=== PATIENT | male | born 1970 | race Caucasian/White ===

== ENCOUNTER 2018-01-20 10:25 | Emergency (ER) | payer MEDICARE, OTHER ==
[2018-01-20 10:46] VITALS: RESP 18; TEMP 98.4
[2018-01-20] MEDS ORDERED: KETOROLAC 60 MG/2 ML VIAL IM STA (11:12)
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
[2018-01-20 12:36] VITALS: BP 146/90; PULSE 90
== END 2018-01-20 12:33 | disposition home or self-care (01) ==
LOC: EC 10:25
DX: S83.92XA Sprain of unspecified site of left knee, initial encounter (principal); S46.912A Strain of unspecified muscle, fascia and tendon at shoulder and upper arm level, left arm, initial encounter; S16.1XXA Strain of muscle, fascia and tendon at neck level, initial encounter; G89.29 Other chronic pain; F31.9 Bipolar disorder, unspecified; F41.9 Anxiety disorder, unspecified; F17.200 Nicotine dependence, unspecified, uncomplicated; Z79.899 Other long term (current) drug therapy; Y09 Assault by unspecified means
CPT/HCPCS: 73030; 73562; 72125; 99284; 96372; J1885

== ENCOUNTER → 2018-01-27 | Outpatient (CLI) | payer MEDICARE, OTHER ==
--- NOTE | 2018-01-27 23:07 | MR ---
EXAMINATION TYPE: MR knee LT wo con DATE OF EXAM: 01/27/2018 COMPARISON: NONE HISTORY: Left knee pain with locking and swelling since 01/18/2018 TECHNIQUE: Multiplanar, multisequence imaging of the left knee is performed without IV contrast. FINDINGS: The anterior and posterior cruciate ligaments appear intact. There is knee joint effusion. There is s ubcutaneous edema around the knee and more on the posterior aspect. There is soft tissue fluid in the popliteal region. There is a horizontal defect within the posterior horn of the medial meniscus. Thi s extends slightly into the anterior horn of the medial meniscus. There is a similar larger defect in the posterior horn of the lateral meniscus. There is collateral ligaments are intact. There is no ev idence of a fracture. Joint spaces are fairly normal. IMPRESSION: No evidence of ligamentous tear. Knee joint effusion and subcutaneous edema around the knee. Poplitea l space edema. Intrasubstance horizontal tears of the medial meniscus and the posterior horn of the lateral meniscus .
== END | disposition home or self-care (01) ==
LOC: RADMRIMAIN 21:20
PROVIDERS: ATTEND Internal Medicine
DX: S83.242A Other tear of medial meniscus, current injury, left knee, initial encounter (principal); S83.282A Other tear of lateral meniscus, current injury, left knee, initial encounter

== ENCOUNTER → 2019-01-05 | Outpatient (CLI) | payer MEDICARE, OTHER ==
--- NOTE | 2019-01-06 00:30 | MR ---
EXAMINATION TYPE: MR knee LT wo con DATE OF EXAM: 01/05/2019 COMPARISON: January 27, 2018 HISTORY: Lt knee pain/injury January 2018 TECHNIQUE: Multiplanar, multisequence imaging of the left knee is performed without IV contrast. FINDINGS: The anterior and posterior cruciate ligaments are intact. There is mild increased signal within the l ateral meniscus that does not extend to the articular surface. There is minimal increased signal with in the posterior horn of the medial meniscus also. There is a small knee joint effusion. I see no bon y destructive process. There is a small degenerative cyst in the anterior aspect lateral femoral cond yle. There is no evidence of a fracture. The collateral ligaments appear intact. Patella appears inta ct. IMPRESSION: There is a small intrasubstance tear of the anterior and posterior horns of the lateral meniscus and also the posterior horn of the medial meniscus. There is no significant change in the appearance of t he menisci compared to last MR scan. Small knee joint effusion that appears smaller than the old exam. No evidence of ligamentous tear. 7 mm degenerative cyst in the lateral femoral condyle anteriorly. There is clearing of the bone bruise in the lateral femoral condyle in the same location compared to old exam.
== END ==
LOC: RADMRIMAIN 20:14
PROVIDERS: ATTEND Orthopaedic Surgery
DX: S83.282A Other tear of lateral meniscus, current injury, left knee, initial encounter (principal); S83.242A Other tear of medial meniscus, current injury, left knee, initial encounter; M85.68 Other cyst of bone, other site; S70.12XA Contusion of left thigh, initial encounter

== ENCOUNTER 2020-04-14 09:19 | Inpatient (IN) | payer OTHER, MEDICARE ==
--- NOTE | 2020-04-14 09:56 | ED ---
General Adult HPI - General Chief complaint: Recheck/Abnormal Lab/Rx Stated complaint: lab recheck-sent by Time Seen by Provider: 04/14/20 09:30 Source: patient, RN notes reviewed Mode of arrival: ambulatory Limitations: no limitations - History of Present Illness Initial comments: This is a 49-year-old male presents emergency Department chief complaint of elevated they did bilirubin. Patient states that his primary care physician advised him come emergency department for this. Patient states that recently in the last week his front of him and telling them that his eyes seemed to be yellow in color. Patient states that he notices urine is darker than normal. Patient was advised by his primary care physician this is most likely related to his alcohol use. Patient states that he drinks either a 12 pack a day or 612 years. Patient states that he is on it as long as he remembers. Patient states that he's been noticing that his abdomen has been distended, and his legs have been swelling. Patient denies any fevers chills no current chest pain. He's had some intermittent shortness of breath. - Related Data Home Medications Medication Instructions Recorded Confirmed Carboxymethylcellulose Sodium 1 drop BOTH EYES QID 01/20/18 01/20/18 [Refresh Tears] Diclofenac Sodium Gel [Voltaren 1 applic TOPICAL BID PRN 01/20/18 01/20/18 Gel] HYDROcodone/APAP 7.5-325MG [[place] 1 tab PO BID PRN 01/20/18 01/20/18 7.5-325] Lidocaine 5% Patch [Lidoderm] 1 - 3 patch TOPICAL DAILY PRN 01/20/18 01/20/18 Mirtazapine 15 mg PO HS 01/20/18 01/20/18 Sildenafil Citrate [Viagra] 50 mg PO ONCE PRN 01/20/18 01/20/18 buPROPion HCL [Wellbutrin SR] 200 mg PO BID 01/20/18 01/20/18 Previous Rx's Medication Instructions Recorded Ibuprofen [Motrin] 600 mg PO Q6HR PRN #20 tab 01/20/18 Orphenadrine [Norflex] 100 mg PO Q12H #10 tablet.er 01/20/18 Allergies Allergy/AdvReac Type Severity Reaction Status Date / Time No Known Allergies Allergy Verified 04/14/20 09:27 Review of Systems ROS Statement: Those systems with pertinent positive or pertinent negative responses have been documented in the HPI. ROS Other: All systems not noted in ROS Statement are negative. Past Medical History Additional Past Medical History / Comment(s): chronic pain, antisocial behavior, right eye problems (possibly CA), closed head injury x5 History of Any Multi-Drug Resistant Organisms: None Reported Past Surgical History: Orthopedic Surgery Additional Past Surgical History / Comment(s): hand Past Psychological History: Anxiety, Bipolar Smoking Status: Former smoker Past Alcohol Use History: Daily Past Drug Use History: Marijuana General Exam Limitations: no limitations General appearance: alert, in no apparent distress Head exam: Present: atraumatic, normocephalic, normal inspection Eye exam: Present: PERRL, EOMI, scleral icterus. Absent: normal appearance, conjunctival injection, periorbital swelling ENT exam: Present: mucous membranes moist. Absent: normal exam, normal oropharynx (Sublingual icterus) Neck exam: Present: normal inspection, full ROM. Absent: tenderness, meni ngismus, lymphadenopathy Respiratory exam: Present: normal lung sounds bilaterally. Absent: respiratory distress, wheezes, rales, rhonchi, stridor Cardiovascular Exam: Present: normal rhythm, tachycardia, normal heart sounds. Absent: systolic murmur, diastolic murmur, rubs, gallop, clicks GI/Abdominal exam: Present: soft, distended, tenderness (Mild), normal bowel sounds, other (There are 2 healing wounds noted, there is some surrounding ecchymosis noted). Absent: guarding, rebound, rigid Back exam: Absent: CVA tenderness (R), CVA tenderness (L) Neurological exam: Present: alert, oriented X3, CN II-XII intact Skin exam: Present: warm, dry, intact, normal color. Absent: rash Course Vital Signs 04/14/20 09:23 Temperature 99.2 F Pulse Rate 107 H Respiratory 18 Rate Blood Pressure 124/69 O2 Sat by Pulse 97 Oximetry Medical Decision Making - Medical Decision Making 49-year-old male presents emergency Department chief complaint abnormal labs. Patient's found To have a bilirubin of 12.3 with transaminitis, INR 1.9. Patient's albumin is 2.8. Patient has acute liver failure, cirrhosis from alcohol abuse. Patient will be admitted to the for GI and surgery consult. Patient was placed on CIWA with Ativan protocol. - Lab Data Result diagrams: 04/14/20 10:11 Lab Results 04/14/20 04/14/20 04/14/20 Range/Units 10:11 10:11 10:11 PT 18.1 H (9.0-12.0) sec INR 1.9 H (<1.2) APTT 35.9 H (22.0-30.0) sec Sodium 136 L (137-145) mmol/L Potassium 4.1 (3.5-5.1) mmol/L Chloride 99 (98-107) mmol/L Carbon Dioxide 28 (22-30) mmol/L Anion Gap 9 mmol/L BUN 8 L (9-20) mg/dL Creatinine 0.62 L (0.66-1.25) mg/dL Est GFR (CKD-EPI)AfAm >90 (>60 ml/min/1.73 sqM) Est GFR (CKD-EPI)NonAf >90 (>60 ml/min/1.73 sqM) Glucose 101 H (74-99) mg/dL Plasma Lactic Acid Gasper 1.6 (0.7-2.0) mmol/L Calcium 8.7 (8.4-10.2) mg/dL Total Bilirubin 12.3 H (0.2-1.3) mg/dL AST 192 H (17-59) U/L ALT 66 H (4-49) U/L Alkaline Phosphatase 167 H (38-126) U/L Ammonia 25 (<30) umol/L Total Protein 7.7 (6.3-8.2) g/dL Albumin 2.8 L (3.5-5.0) g/dL Amylase 57 (30-110) U/L Lipase 380 H (23-300) U/L Serum Alcohol <10 mg/dL Disposition Clinical Impression: Alcohol abuse, Acute liver failure, Liver cirrhosis, Jaundice Disposition: ADMITTED IP TO THIS HOSP Condition: Serious Referrals: Hilaria Rhodes DO [Primary Care Provider] - 1-2 days
--- NOTE | 2020-04-14 10:49 | US ---
EXAMINATION TYPE: US liver DATE OF EXAM: 04/14/2020 COMPARISON: None CLINICAL HISTORY: 49-year-old male with Jaundice. Elevated bilirubin. TECHNIQUE: Multiple sonographic images of the right upper quadrant are obtained. FINDINGS: EXAM MEASUREMENTS: Liver Length: 23.9 cm Gallbladder Wall: 0.6 cm Right Kidney: 12.6 x 6.6 x 5.6 cm Pancreas: Obscured by bowel gas Liver: Increased attenuation, decreased visualization of vessels suggestive of fatty infiltrate. Un able to visualize posterior liver. Liver appears enlarged, echogenic and nodular. This secondarily limits assessment for focal lesion. At the gallbladder fundus, there is either Gallbladder: Thickened wall. At the gallbladder fundus, there is either more focal wall thickening m easuring 1.9 x 0.7 cm versus tumefactive sludge. No associated vascularity. No shadowing calculi. Evidence for sonographic Mao's sign: neg CBD: Obscured by overlying bowel gas Right Kidney: No hydronephrosis or masses seen Ascites visualized adjacent to liver and small amount of fluid seen in LLQ IMPRESSION: 1. Hepatomegaly (23.9 cm) with severe hepatic steatosis. There is also some contour irregularity of t he liver raising the possibility of cirrhosis. 2. The changes in the liver limit assessment for focal lesions. 3. Bile duct is obscured by bowel gas and not assessed. 4. Gallbladder wall thickening is nonspecific and may be seen in the setting of cirrhosis or fluid ov erload states. Chronic cholecystitis is a consideration as well. 5. More focal 1.9 x 0.7 cm thickening of the fundus of the gallbladder versus tumefactive sludge. 2 m onth follow-up ultrasound recommended to reassess this area. 6. Mild right upper quadrant and left lower quadrant ascites.
[2020-04-14 11:08] LABS: INR 1.9 (<1.2); Lactic Acid, Venous 1.6 mmol/L (0.7-2.0); Partial Thromboplastin Time 35.9 sec (22.0-30.0); Prothrombin Time 18.1 sec (9.0-12.0)
[2020-04-14 11:13] LABS: ALT 66 U/L (4-49); AST 192 U/L (17-59); African American GFR (CKD) >90 (>60 ml/min/1.73 sqM); Albumin 2.8 g/dL (3.5-5.0); Alcohol <10 mg/dL; Alkaline Phosphatase 167 U/L (38-126); Amylase 57 U/L (30-110); Anion Gap 9 mmol/L; Blood Urea Nitrogen 8 mg/dL (9-20); Calcium 8.7 mg/dL (8.4-10.2); Carbon Dioxide 28 mmol/L (22-30); Chloride 99 mmol/L (98-107); Glucose 101 mg/dL (74-99); Non-African American GFR(CKD) >90 (>60 ml/min/1.73 sqM); Potassium 4.1 mmol/L (3.5-5.1); Sodium 136 mmol/L (137-145); Total Bilirubin 12.3 mg/dL (0.2-1.3); Total Protein 7.7 g/dL (6.3-8.2)
[2020-04-14] MEDS ORDERED: ONDANSETRON 4 MG/2 ML VIAL IVP PRN (11:30)
[2020-04-14] MEDS ORDERED: NALOXONE 0.4 MG/ML 1 ML VIAL IV PRN (11:30)
[2020-04-14] MEDS ORDERED: LORazepam 2 MG/ML INJ IV PRN ×3 (11:31)
[2020-04-14] MEDS ORDERED: MORPHINE SULFATE 4 MG/ML SYRINGE IVP STA (11:34)
[2020-04-14 12:05] LABS: Basophils # (A) 0.1 k/uL (0-0.2); Basophils % (A) 1 %; Eosinophils # (A) 0.1 k/uL (0-0.7); Eosinophils % (A) 1 %; HCT 36.7 % (39.0-53.0); Lymphocytes # (A) 0.8 k/uL (1.0-4.8); Lymphocytes % (A) 10 %; MCH 37.4 pg (25.0-35.0); MCHC 32.7 g/dL (31.0-37.0); MCV 114.2 fL (80.0-100.0); Macrocytosis Marked; Mean Platelet Volume 9.8; Monocytes # (A) 0.6 k/uL (0-1.0); Monocytes % (A) 7 %; Neutrophils # (A) 6.1 k/uL (1.3-7.7); Neutrophils % (A) 80 %; RBC 3.21 m/uL (4.30-5.90); RDW 13.6 % (11.5-15.5); WBC 7.7 k/uL (3.8-10.6)
[2020-04-14 12:10] LABS: Anisocytosis (M) Present; Platelet Count 95 k/uL (150-450); Poikilocytosis (M) Present
[2020-04-14 12:15] LABS: Appearance,Urine Cloudy (Clear); Bilirubin,Urine 2+ (Negative); Blood,Urine Negative (Negative); Color,Urine Dark Brown; Glucose,Urine (UA) Negative (Negative); Ketones,Urine Negative (Negative); Leukocyte Esterase,Urine Negative (Negative); Mucus,Urine Many /hpf; Nitrite,Urine Negative (Negative); Protein,Urine 1+ (Negative); RBC,Urine 1 /hpf (0-5); Specific Gravity,Urine 1.025 (1.001-1.035); WBC,Urine 1 /hpf (0-5)
[2020-04-14] MEDS: SPIRONOLACTONE 25 MG TAB PO SCH (18:27)
[2020-04-14] MEDS: FUROSEMIDE 40 MG TAB PO SCH (18:27)
[2020-04-14] MEDS: THIAMINE 100 MG TAB PO SCH (18:27)
[2020-04-14] MEDS: oxyCODONE-APAP 10-325MG 1 EACH TAB PO PRN (19:38)
[2020-04-14] MEDS: PANTOPRAZOLE 40 MG TABLET PO SCH (19:38)
--- NOTE | 2020-04-15 00:10 | CONS ---
CONSULTATION DATE OF DICTATION: 04/14/2020 REASON FOR CONSULTATION: Jaundice and elevated LFTs. HISTORY OF PRESENT ILLNESS: The patient is a 49-year-old pleasant white male admitted to the hospital because of abnormal labs and elevated LFTs. The patient was seen by his primary care physician because of a recent dog bite and he was receiving some antibiotics. He was seen there yesterday because of lower extremity swelling and some abdominal distention and was told that he has yellowish discoloration of his eyes and advised to go to the emergency room. Patient has history of heavy alcohol abuse for the last 20 years duration. He usually drinks 12 pack of beer on a daily basis for the last 20 years. He denies any abdominal pain. He reports no nausea or vomiting. He denies any rectal bleeding or melena. He came in the emergency room and was noted to have elevated bilirubin at 16 g/dL with ALT and AST at 192 and 66 respectively. Alkaline phosphatase was 167. Amylase and lipase are normal. He recently had a dog bite and took antibiotics for 10 days. Last dose of antibiotic was yesterday morning. PAST MEDICAL HISTORY: Significant for hypertension, chronic back pain, anxiety, depression, recent dog bite and heavy alcohol abuse. MEDICATIONS: Medications at home include Voltaren gel, Viagra, Wellbutrin, Lidoderm, [place], mirtazapine. ALLERGIES: None. SOCIAL HISTORY: Former smoker. Heavy alcohol use as mentioned above. PAST SURGICAL HISTORY: Some orthopedic surgery. REVIEW OF SYSTEMS: CARDIOPULMONARY: No chest pain, shortness of breath. GENITOURINARY: No dysuria or hematuria. MUSCULOSKELETAL: Unremarkable. SKIN: Unremarkable. ENDOCRINE: Unremarkable. PSYCHIATRIC: Unremarkable. NEUROLOGY: Unremarkable. ENT/VISION: Unremarkable. CONSTITUTIONAL: No recent weight loss. No fever, chills, night sweats. PHYSICAL EXAMINATION: He appears comfortable. No apparent distress. Vital signs are stable. Blood pressure 128/76, pulse rate 97, temperature 98. HEENT EXAMINATION: Unremarkable. Conjunctivae pink. Sclerae anicteric. Oral cavity, no lesions. NECK: No JVD or lymph node enlargement. CHEST: Clear to auscultation. HEART: Regular rate and rhythm. ABDOMEN: Soft, it was slightly distended. There was some amount of free fluid noted in the abdomen. EXTREMITIES: 1+ pedal edema. SKIN: No rashes. NEURO: He is alert and oriented x3. No focal deficits. Ultrasound of the right upper quadrant did show evidence of small amount of ascites. There is increased attenuation of the liver consistent with fatty infiltration of the liver. Gallbladder wall was thickened. There was mild thickening of the gallbladder wall. No evidence of gallstones. IMPRESSION: 1. This is a patient with history of heavy alcohol abuse for the last 20 years duration, presents to the hospital with jaundice, abdominal distention and lower extremity swelling for the last few days duration. His picture is consistent with acute alcoholic liver disease with alcoholic hepatitis superimposed on possible underlying chronic alcoholic liver disease. 2. Mild ascites. 3. Recent dog bite, status post 10 days of antibiotics. 4. Macrocytic anemia. 5. Coagulopathy secondary to underlying chronic liver disease. RECOMMENDATIONS: 1. Abstinence from alcohol. 2. Monitor LFTs closely. 3. Obtain hepatitis viral serologies for A, B and C. 4. We will start him on diuretics with Lasix 40 mg daily and Aldactone 50 mg daily. 5. Low-salt diet. 6. We will follow with you closely. Thank you for this consultation. MMODL / IJN: [id number] /
[2020-04-15] MEDS: oxyCODONE-APAP 10-325MG 1 EACH TAB PO PRN ×3 (05:57→22:09)
[2020-04-15 08:20] LABS: ALT 63 U/L (4-49); AST 156 U/L (17-59); African American GFR (CKD) >90 (>60 ml/min/1.73 sqM); Albumin 2.5 g/dL (3.5-5.0); Alkaline Phosphatase 145 U/L (38-126); Anion Gap 6 mmol/L; Blood Urea Nitrogen 14 mg/dL (9-20); Calcium 8.6 mg/dL (8.4-10.2); Carbon Dioxide 26 mmol/L (22-30); Chloride 99 mmol/L (98-107); Glucose 103 mg/dL (74-99); Non-African American GFR(CKD) >90 (>60 ml/min/1.73 sqM); Potassium 3.9 mmol/L (3.5-5.1); Sodium 131 mmol/L (137-145); Total Bilirubin 12.2 mg/dL (0.2-1.3); Total Protein 7.3 g/dL (6.3-8.2)
[2020-04-15] MEDS: SPIRONOLACTONE 25 MG TAB PO SCH (09:04)
[2020-04-15] MEDS: PANTOPRAZOLE 40 MG TABLET PO SCH ×2 (09:04→18:36)
[2020-04-15] MEDS: FUROSEMIDE 40 MG TAB PO SCH (09:04)
[2020-04-15] MEDS: THIAMINE 100 MG TAB PO SCH ×2 (09:05→18:36)
--- NOTE | 2020-04-15 14:09 | P.GSCN ---
History of Present Illness Consult date: 04/15/20 Reason for Consult: Chronic cholecystitis Requesting physician: Miah Dawn History of present illness: CHIEF COMPLAINT: Chronic cholecystitis HISTORY OF PRESENT ILLNESS: 49-year-old male who presented to the emergency room after having labs completed outpatient secondary to jaundice and was notified by his physician that his labs were abnormal. Patient has a history of alcohol abuse. Patient examined at the bedside with Dr. Cotto. Patient states he has a chronic pain patient. However he denies any worsening pain to his abdomen. Denies nausea or vomiting. He is tolerating diet. PAST MEDICAL HISTORY: See list. PAST SURGICAL HISTORY: See list. SOCIAL HISTORY: History of alcohol abuse REVIEW OF SYSTEMS: CONSTITUTIONAL: Denies fever or chills. HEENT: Denies blurred vision, vision changes, or eye pain. Denies hemoptysis CARDIOVASCULAR: Denies chest pain or pressure. RESPIRATORY: No shortness of breath. GASTROINTESTINAL: Refer to HPI for pertinent findings HEMATOLOGIC: Denies bleeding disorders. GENITOURINARY: Denies any blood in urine. SKIN: Denies pruitis. Denies rash. PHYSICAL EXAM: VITAL SIGNS: Reviewed. Jaundice GENERAL: Well-developed in no acute distress. HEENT: Bilateral sclera icterus. Extraocular movements grossly intact. Moist buccal mucosa. Head is atraumatic, normocephalic. ABDOMEN: Obese. Distended but appears to be patient's baseline. Nontender. NEUROLOGIC: Alert and oriented. Cranial nerves II through XII grossly intact. LABORATORY DATA: WBC 7.7. Hemoglobin 12.0. Platelet count 95. INR 1.9. Bilirubin 12.2. AST 156. ALT 63. Alkaline phosphatase 145. IMAGING: Abdominal ultrasound: Hepatomegaly with severe hepatic steatosis. Bile duct is obscured by bowel gas and not assessed. Gallbladder wall thickening is nonspec ific and may be seen in the setting of cirrhosis or fluid overload. Chronic cholecystitis is a consideration as well. Mild right upper quadrant and left lower quadrant ascites. ASSESSMENT: 1. Jaundice 2. Hyperbilirubinemia 3. Transaminitis 4. History of alcohol abuse 5. Possible chronic cholecystitis PLAN: -Diet as tolerated -No surgical intervention recommended -Patient may follow up with Dr. Cotto outpatient postdischarge Nurse practitioner note has been reviewed by physician. Signing provider agrees with the documented findings, assessment, and plan of care. 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, [place] 2015 per patient History of Any Multi-Drug Resistant Organisms: MRSA Year Discovered:: 2012 MDRO Source:: wound Past Surgical History: Orthopedic Surgery Additional Past Surgical History / Comment(s): hand Past Anesthesia/Blood Transfusion Reactions: No Reported Reaction Past Psychological History: Anxiety, Bipolar Smoking Status: Never smoker Past Alcohol Use History: Daily Past Drug Use History: Marijuana - Past Family History Mother Family Medical History: COPD Father History Unknown: Yes Medications and Allergies Home Medications Medication Instructions Recorded Confirmed Type Albuterol Sulfate [Ventolin HFA] 2 puff INHALATION RT-Q4H PRN 04/14/20 04/14/20 History Amoxic-Pot Clav 875-125Mg 1 tab PO BID 04/14/20 04/14/20 History [Augmentin 875-125] Omeprazole [PriLOSEC] 20 mg PO DAILY 04/14/20 04/14/20 History oxyCODONE-APAP 10-325MG [Percocet 1 tab PO TID PRN 04/14/20 04/14/20 History 10-325 mg] Allergies Allergy/AdvReac Type Severity Reaction Status Date / Time No Known Allergies Allergy Verified 04/14/20 18:19 Surgical - Exam Vital Signs Temp Pulse Resp BP Pulse Ox 99.2 F 107 H 18 124/69 97 04/14/20 09:23 04/14/20 09:23 04/14/20 09:23 04/14/20 09:23 04/14/20 09:23 Results - Labs 04/14/20 10:11 04/15/20 07:46 Abnormal Lab Results - Last 24 Hours (Table) 04/15/20 Range/Units 07:46 Sodium 131 L (137-145) mmol/L Creatinine 0.64 L (0.66-1.25) mg/dL Glucose 103 H (74-99) mg/dL Total Bilirubin 12.2 H (0.2-1.3) mg/dL AST 156 H (17-59) U/L ALT 63 H (4-49) U/L Alkaline Phosphatase 145 H (38-126) U/L Albumin 2.5 L (3.5-5.0) g/dL Diabetes panel 04/15/20 Range/Units 07:46 Sodium 131 L (137-145) mmol/L Potassium 3.9 (3.5-5.1) mmol/L Chloride 99 (98-107) mmol/L Carbon Dioxide 26 (22-30) mmol/L BUN 14 (9-20) mg/dL Creatinine 0.64 L (0.66-1.25) mg/dL Glucose 103 H (74-99) mg/dL Calcium 8.6 (8.4-10.2) mg/dL AST 156 H (17-59) U/L ALT 63 H (4-49) U/L Alkaline Phosphatase 145 H (38-126) U/L Total Protein 7.3 (6.3-8.2) g/dL Albumin 2.5 L (3.5-5.0) g/dL Calcium panel 04/15/20 Range/Units 07:46 Calcium 8.6 (8.4-10.2) mg/dL Albumin 2.5 L (3.5-5.0) g/dL Pituitary panel 04/15/20 Range/Units 07:46 Sodium 131 L (137-145) mmol/L Potassium 3.9 (3.5-5.1) mmol/L Chloride 99 (98-107) mmol/L Carbon Dioxide 26 (22-30) mmol/L BUN 14 (9-20) mg/dL Creatinine 0.64 L (0.66-1.25) mg/dL Glucose 103 H (74-99) mg/dL Calcium 8.6 (8.4-10.2) mg/dL Adrenal panel 04/15/20 Range/Units 07:46 Sodium 131 L (137-145) mmol/L Potassium 3.9 (3.5-5.1) mmol/L Chloride 99 (98-107) mmol/L Carbon Dioxide 26 (22-30) mmol/L BUN 14 (9-20) mg/dL Creatinine 0.64 L (0.66-1.25) mg/dL Glucose 103 H (74-99) mg/dL Calcium 8.6 (8.4-10.2) mg/dL Total Bilirubin 12.2 H (0.2-1.3) mg/dL AST 156 H (17-59) U/L ALT 63 H (4-49) U/L Alkaline Phosphatase 145 H (38-126) U/L Total Protein 7.3 (6.3-8.2) g/dL Albumin 2.5 L (3.5-5.0) g/dL
[2020-04-15 16:30] LABS: Hepatitis A Antibody IgM Non-Reactive (Non-Reactive); Hepatitis B Core IgM Non-Reactive (Non-Reactive); Hepatitis B Surface Antigen Non-Reactive (Non-Reactive); Hepatitis C IgG Antibody Non-Reactive (Non-Reactive)
--- NOTE | 2020-04-15 23:46 | P.HPIM ---
History of Present Illness H&P Date: 04/15/20 Chief Complaint: jaundice Jitendra Shook is a 49 yo M with hx chronic back pain, alcohol abuse who presented to the ED after he was noted to have significant jaundice by his p hysician. He was seen in clinic yesterday and recommended to come in to the ED. He states he drinks a 12 pack of beer most days for years, but with the lockdown he has not been able to work so has spent most of his time drinking beer. He denies any abdominal pain, nausea or vomiting. In the ED WBC 7.7, Hgb 12, bilirubin was 12.3, AST/ALT 192 and 68. Abd US showed fatty liver, gallbladder wall thickening with possible chronic cholecystitis. Review of Systems All systems: negative Constitutional: Reports malaise, Denies chills, Denies fever Eyes: denies blurred vision, denies pain Ears, nose, mouth and throat: Denies headache, Denies sore throat Cardiovascular: Denies chest pain, Denies shortness of breath Respiratory: Denies cough Gastrointestinal: Reports jaundice, Reports loss of appetite, Denies abdominal pain, Denies diarrhea, Denies nausea, Denies vomiting Musculoskeletal: Denies myalgias Integumentary: Denies pruritus, Denies rash Neurological: Denies numbness, Denies weakness Psychiatric: Denies anxiety, Denies depression Endocrine: Denies fatigue, Denies weight change 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, [place] 2015 per patient History of Any Multi-Drug Resistant Organisms: MRSA Date of last positivie culture/infection: 2012 MDRO Source:: wound Past Surgical History: Orthopedic Surgery Additional Past Surgical History / Comment(s): hand Past Anesthesia/Blood Transfusion Reactions: No Reported Reaction Past Psychological History: Anxiety, Bipolar Smoking Status: Never smoker Past Alcohol Use History: Daily Past Drug Use History: Marijuana - Past Family History Mother Family Medical History: COPD Father History Unknown: Yes Medications and Allergies Home Medications Medication Instructions Recorded Confirmed Type Albuterol Sulfate [Ventolin HFA] 2 puff INHALATION RT-Q4H PRN 04/14/20 04/14/20 History Amoxic-Pot Clav 875-125Mg 1 tab PO BID 04/14/20 04/14/20 History [Augmentin 875-125] Omeprazole [PriLOSEC] 20 mg PO DAILY 04/14/20 04/14/20 History oxyCODONE-APAP 10-325MG [Percocet 1 tab PO TID PRN 04/14/20 04/14/20 History 10-325 mg] Allergies Allergy/AdvReac Type Severity Reaction Status Date / Time No Known Allergies Allergy Verified 04/14/20 18:19 Physical Exam Vitals: Vital Signs Temp Pulse Resp BP Pulse Ox 04/15/20 20:50 98.8 F 97 18 120/71 95 04/15/20 12:05 98.5 F 70 17 95/63 95 04/15/20 04:49 98.5 F 96 18 112/62 96 Intake and Output 04/15/20 04/15/20 04/16/20 14:59 22:59 06:59 Intake Total 500 Balance 500 Intake: Oral 500 Other: Voiding Method Toilet Toilet # Voids 2 General: well developed white male in NAD. Vitals reviewed Eyes: PERRL, EOMI, scleral icterus HENT: normocephalic, mucus membranes moist Neck: supple, no JVD Lungs: normal respiratory effort, no wheezes or rales CV: Regular rate and rhythm, no murmur. Peripheral pulses 2+ Abdomen: soft, distended, nontender, no organomegaly Lymph: no cervical or axillary LAD Skin: warm and dry. Jaundice Neuro: A&Ox3, normal mood and affect Results CBC & Chem 7: 04/14/20 10:11 04/15/20 07:46 Labs: Abnormal Lab Results - Last 24 Hours (Table) 04/15/20 Range/Units 07:46 Sodium 131 L (137-145) mmol/L Creatinine 0.64 L (0.66-1.25) mg/dL Glucose 103 H (74-99) mg/dL Total Bilirubin 12.2 H (0.2-1.3) mg/dL AST 156 H (17-59) U/L ALT 63 H (4-49) U/L Alkaline Phosphatase 145 H (38-126) U/L Albumin 2.5 L (3.5-5.0) g/dL Thrombosis Risk Factor Assmnt - Choose All That Apply Each Factor Represents 1 point: Age 41-60 years Other Risk Factors: No Other congenital or acquired thrombophilia - If yes, enter type in comment: No Thrombosis Risk Factor Assessment Total Risk Factor Score: 1 Thrombosis Risk Factor Assessment Level: Low Risk Assessment and Plan (1) Alcohol withdrawal Current Visit: Yes Status: Acute Code(s): F10.239 - ALCOHOL DEPENDENCE WITH WITHDRAWAL, UNSPECIFIED SNOMED Code(s): 803801156 (2) Elevated LFTs Current Visit: Yes Status: Acute Code(s): R79.89 - OTHER SPECIFIED ABNORMAL FINDINGS OF BLOOD CHEMISTRY SNOMED Code(s): 894210681 (3) Acute liver failure Current Visit: Yes Status: Acute Code(s): K72.00 - ACUTE AND SUBACUTE HEPATIC FAILURE WITHOUT COMA SNOMED Code(s): 602735299 (4) Alcohol abuse Current Visit: Yes Status: Acute Code(s): F10.10 - ALCOHOL ABUSE, UNCOMPLICATED SNOMED Code(s): 92466573 (5) Jaundice Current Visit: Yes Status: Acute Code(s): R17 - UNSPECIFIED JAUNDICE SNOMED Code(s): 05628042 (6) Liver cirrhosis Current Visit: Yes Status: Acute Code(s): K74.60 - UNSPECIFIED CIRRHOSIS OF LIVER SNOMED Code(s): 18587074 Plan: 1. Hyperbilirubinemia. Elevated LFTs. Suspect secondary to alcoholic cirrhosis. GI and general surgery consult. Abstain from alcohol. IV fluids and protonix. continue lasix 2. Alcohol withdrawal. CIWA protocol, replace thiamine 3. Macrocytic anemia
[2020-04-16 06:52] LABS: INR 1.8 (<1.2); Prothrombin Time 17.9 sec (9.0-12.0)
[2020-04-16 07:30] LABS: ALT 58 U/L (4-49); AST 146 U/L (17-59); African American GFR (CKD) >90 (>60 ml/min/1.73 sqM); Albumin 2.4 g/dL (3.5-5.0); Alkaline Phosphatase 136 U/L (38-126); Anion Gap 7 mmol/L; Blood Urea Nitrogen 13 mg/dL (9-20); Calcium 8.3 mg/dL (8.4-10.2); Carbon Dioxide 27 mmol/L (22-30); Chloride 99 mmol/L (98-107); Glucose 97 mg/dL (74-99); Non-African American GFR(CKD) >90 (>60 ml/min/1.73 sqM); Sodium 133 mmol/L (137-145); Total Bilirubin 9.8 mg/dL (0.2-1.3)
[2020-04-16] MEDS: THIAMINE 100 MG TAB PO SCH (08:33)
[2020-04-16] MEDS: FUROSEMIDE 40 MG TAB PO SCH (08:33)
[2020-04-16] MEDS: SPIRONOLACTONE 25 MG TAB PO SCH (08:33)
[2020-04-16] MEDS: oxyCODONE-APAP 10-325MG 1 EACH TAB PO PRN (08:34)
[2020-04-16] MEDS: PANTOPRAZOLE 40 MG TABLET PO SCH (08:36)
--- NOTE | 2020-04-16 09:32 | P.PN ---
Subjective Progress Note Date: 04/15/20 Principal diagnosis: Alcoholic liver disease, ascites, macrocytic anemia Patient seen lying in bed tolerating diet. No abdominal pain. No nausea or vomiting but he does report abdominal distention. Objective - Vital Signs Vital signs: Vital Signs Temp 98.5 F 04/15/20 12:05 Pulse 70 04/15/20 12:05 Resp 17 04/15/20 12:05 BP 95/63 04/15/20 12:05 Pulse Ox 95 04/15/20 12:05 Intake & Output 04/14/20 04/15/20 04/15/20 18:59 06:59 18:59 Weight 113.398 kg 112 kg Other: Voiding Method Toilet Toilet # Voids 1 - Exam On physical examination, patient appears comfortable in no apparent distress. HEAD: Normocephalic, atraumatic. EYES: Scleral icterus. No conjunctival injection. MOUTH: No lesions, tongue midline. NECK: Trachea midline, no gross abnormalities. ABDOMEN: Soft, moderately distended. Bowel sounds are positive. No organomegaly. No guarding or rigidity. EXTREMITIES: No pedal edema. SKIN: No rashes, jaundice. NEUROLOGIC: Alert and oriented x3. No focal deficits. - Labs CBC & Chem 7: 04/14/20 10:11 04/16/20 06:25 Labs: Abnormal Lab Results - Last 24 Hours (Table) 04/15/20 Range/Units 07:46 Sodium 131 L (137-145) mmol/L Creatinine 0.64 L (0.66-1.25) mg/dL Glucose 103 H (74-99) mg/dL Total Bilirubin 12.2 H (0.2-1.3) mg/dL AST 156 H (17-59) U/L ALT 63 H (4-49) U/L Alkaline Phosphatase 145 H (38-126) U/L Albumin 2.5 L (3.5-5.0) g/dL Assessment and Plan (1) Elevated LFTs Narrative/Plan: 49-year-old male with a 20 year history of alcohol abuse presenting to the hospital with jaundice, abdominal distention and lower extremity swelling. Liver enzymes consistent with underlying alcoholic liver disease with superimposed acute fall hepatitis. Current Visit: Yes Status: Acute Code(s): R79.89 - OTHER SPECIFIED ABNORMAL FINDINGS OF BLOOD CHEMISTRY SNOMED Code(s): 636085682 (2) Alcohol abuse Current Visit: Yes Status: Acute Code(s): F10.10 - ALCOHOL ABUSE, UNCOMPLICATED SNOMED Code(s): 22963193 (3) Jaundice Current Visit: Yes Status: Acute Code(s): R17 - UNSPECIFIED JAUNDICE SNOMED Code(s): 57952108 Plan: Supportive care Okay for sodium restricted diet Continue to monitor CBC, BMP, LFTs, INR Acute viral hepatitis panel testing negative Continue Lasix and Aldactone for diuresis Alcohol abstinence Monitor for signs or symptoms of alcohol withdrawal Thank you for allowing us to participate in the care of the patient we will continue to follow
--- NOTE | 2020-04-16 11:47 | P.PN ---
Subjective Progress Note Date: 04/16/20 Principal diagnosis: Jaundice Patient doing well today. Tolerating diet. No pain. Would like to go home today. Liver enzymes remain elevated. Objective - Vital Signs Vital signs: Vital Signs Temp 98.6 F 04/16/20 05:00 Pulse 100 04/16/20 05:00 Resp 20 04/16/20 05:00 BP 121/76 04/16/20 05:00 Pulse Ox 97 04/16/20 05:00 Intake & Output 04/15/20 04/16/20 04/16/20 18:59 06:59 18:59 Intake Total 500 240 Balance 500 240 Weight 111.5 kg Intake: Oral 500 240 Other: Voiding Method Toilet Toilet # Voids 2 - Exam Abdomen: Soft, nontender, nondistended - Labs CBC & Chem 7: 04/14/20 10:11 04/16/20 06:25 Labs: Abnormal Lab Results - Last 24 Hours (Table) 04/16/20 04/16/20 Range/Units 06:25 06:25 PT 17.9 H (9.0-12.0) sec INR 1.8 H (<1.2) Sodium 133 L (137-145) mmol/L Calcium 8.3 L (8.4-10.2) mg/dL Total Bilirubin 9.8 H (0.2-1.3) mg/dL AST 146 H (17-59) U/L ALT 58 H (4-49) U/L Alkaline Phosphatase 136 H (38-126) U/L Albumin 2.4 L (3.5-5.0) g/dL Assessment and Plan Plan: Continue diet as tolerated. GI following for alcohol-induced hepatitis.
[2020-04-16] MEDS ORDERED: LORazepam 1 MG TAB PO PRN (12:08)
[2020-04-16] MEDS ORDERED: AMPICILLIN-SULBACTAM 3 GM in SODIUM CHLORIDE 0.9% 100 ML IVPB SCH (12:15)
[2020-04-16 12:26] VITALS: BP 121/75; PULSE 92; RESP 16; TEMP 98
--- NOTE | 2020-04-16 18:40 | PN ---
PROGRESS NOTE DATE OF SERVICE: 04/16/2020 I am covering for Dr. Hilaria Rhodes and Dr. Cesar Ferrara. HISTORY OF PRESENT ILLNESS: This 43-year-old gentleman who was admitted with abdominal pain and also had significant ascites. The patient also has history of EtOH. The patient also had a skin lesion in the anterior part of the abdomen which was caused by a bite by a bulldog according to the patient. The patient was prescribed outpatient antibiotic, but not taken on a regular basis. Past medical history reviewed. REVIEW OF SYSTEMS: CARDIOVASCULAR SYSTEM: No angina or palpitations. RESPIRATION as mentioned earlier. GI: As mentioned earlier. no dysuria. Nervous system: No numbness or weakness. CURRENT MEDICATIONS: Reviewed and include: 1. Unasyn 3 g IV q.6 hours. 2. Lasix 40 mg daily. 3. Ativan. 4. Narcan. 5. Percocet. 6. Protonix. 7. Aldactone. 8. Vitamin B1. PHYSICAL EXAMINATION: Alert and oriented times three. Pulse 92, blood pressure 120/69. Temperature 98 degrees, pulse ox 98% on room air. HEENT: Conjunctivae normal. NECK: No JVD. CARDIOVASCULAR: S1, S2. RESPIRATORY: Breath sounds diminished in the bases. No rhonchi. No crackles. ABDOMEN: Soft, ascites, some discoloration, tenderness at the bite site also present. LAB STUDIES: WBC 7.5, hemoglobin is 12, sodium 131 other labs are noted. ASSESSMENT: 1. Diffuse ascites with tenderness and possible abdominal wall cellulitis resulting from dog bite by pit bull. 2. Chronic pain syndrome. 3. Degenerative joint disease. 4. History of MRSA. 5. Anxiety, bipolar. 6. Hyponatremia. 7. Elevated bilirubin, possibly secondary to cirrhosis of the liver. 8. Diffuse ascites. RECOMMENDATIONS AND DISCUSSION: This 49-year-old gentleman who presented with multiple complex medical issues, I would recommend to continue current medications, symptomatic treatment. Continue with IV antibiotics and I would also recommend further evaluation with CT scan and closely follow with surgery as well. The prognosis guarded because of multiple complex medical issues. Further recommendations to follow. MMODL / IJN: [id number] /
--- NOTE | 2020-04-16 22:27 | DS ---
DISCHARGE SUMMARY DATE OF SERVICE: 04/16/2020. FINAL DIAGNOSES: 1. Diffuse ascites secondary to cirrhosis liver. 2. Abdominal wall cellulitis resulting from pit bull bite. 3. History of chronic pain syndrome. 4. History of degenerative joint disease. 5. History of ETOH. 6. 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 7. Anxiety, bipolar. 8. Macrocytic anemia. 9. Coagulopathy. 10.Hyperbilirubinemia secondary to possibly alcoholic hepatitis, cirrhosis of liver. DISCHARGE DISPOSITION: The patient left the hospital AGAINST MEDICAL ADVICE. HISTORY OF PRESENT ILLNESS: This 49-year-old gentleman was admitted with multiple medical issues. Patient being followed Dr. Hilaria Rhodes and Dr. Cesar Ferrara in the hospital. However, the patient is not willing to stay. The patient was prescribed antibiotics and suggested further testing, but however the patient left the hospital AGAINST MEDICAL ADVICE after a detailed explanation as well. Overall prognosis extremely guarded because of multiple complex medical issues as listed above. Please refer to the multiple progress notes and staff notes for further details. MMODL / IJN: [id number] /
== END 2020-04-16 13:02 | disposition left against medical advice (07) | DRG 433 ==
LOC: EC 09:19 → 5NMEDONC 11:27
PROVIDERS: ADMIT Family Medicine; ATTEND Family Medicine
DX: K70.31 Alcoholic cirrhosis of liver with ascites (principal); L03.311 Cellulitis of abdominal wall; D68.4 Acquired coagulation factor deficiency; F10.239 Alcohol dependence with withdrawal, unspecified; E87.1 Hypo-osmolality and hyponatremia; K81.1 Chronic cholecystitis; K70.11 Alcoholic hepatitis with ascites; K70.40 Alcoholic hepatic failure without coma; F31.9 Bipolar disorder, unspecified; Z20.828 Contact with and (suspected) exposure to other viral communicable diseases; K76.0 Fatty (change of) liver, not elsewhere classified; D53.9 Nutritional anemia, unspecified; I10 Essential (primary) hypertension; M19.90 Unspecified osteoarthritis, unspecified site; M48.02 Spinal stenosis, cervical region; G89.4 Chronic pain syndrome; M54.9 Dorsalgia, unspecified; F41.9 Anxiety disorder, unspecified; Z72.811 Adult antisocial behavior; Z79.899 Other long term (current) drug therapy; Z87.891 Personal history of nicotine dependence; Z86.14 Personal history of Methicillin resistant Staphylococcus aureus infection; Z87.820 Personal history of traumatic brain injury; Z98.890 Other specified postprocedural states; W54.0XXA Bitten by dog, initial encounter; Z82.5 Family history of asthma and other chronic lower respiratory diseases
CPT/HCPCS: 36415; 76705; 80053; 80074; 80320; 81001; 82140; 82150; 83605; 83690; 85025; 85610; 85730; 96374; 99284

== ENCOUNTER → 2020-04-20 | Outpatient (CLI) | payer MEDICARE, OTHER ==
--- NOTE | 2020-04-20 11:22 | CT ---
EXAMINATION TYPE: CT abdomen pelvis w con DATE OF EXAM: 04/20/2020 COMPARISON: NONE HISTORY: 49-year-old male abnormal LFTs TECHNIQUE: Contiguous axial scanning of the abdomen and pelvis following administration of 100 ml Iso eder 300 IV contrast. Delayed images through the kidneys and coronal/sagittal reconstructions perform ed. CT DLP: 1619.2 mGycm Automated exposure control for dose reduction was used. FINDINGS: Heart normal size without pericardial effusion. Extensive bibasilar consolidation in the lower lobes without pleural effusion. Heterogeneous low density throughout the liver. Liver is enlarged measuring 24.2 cm. There is mild up per abdominal ascites with mild ascites tracking down the paracolic gutters and moderate pelvic ascit es. Portal venous system is patent. No biliary ductal dilatation seen. Gallbladder nondistended but shows wall thickening, likely reactive. Adrenal glands, kidneys, and pancreas show no gross abnormality. Hilar splenules. Splenomegaly up to 16.3 cm on coronal series. Gastrohepatic ligament lymph nodes measure up to 1.5 cm. Portacaval lymph node measuring 1.7 cm. Generalized anasarca change. 2.1 cm small fatty umbilical hernia. A dimension throughout the mesenter ic fat along with a tracking ascites. Bladder nondistended but with mild circumferential wall thickening. Pelvic phleboliths. Moderate pelv ic free fluid. Prominent but nonenlarged external iliac chain lymph nodes measuring up to 9 mm. Bones: Degenerative disc disease L5-S1. No osseous destructive process. IMPRESSION: 1. HETEROGENEOUS LOW-DENSITY OF THE LIVER WITH HEPATOMEGALY UP TO 24.2 CM. FINDINGS MAY REFLECT HEPAT ITIS. 2. MILD ABDOMINOPELVIC ASCITES, MILD GENERALIZED ANASARCA CHANGE, AND SPLENOMEGALY UP TO 16.3 CM. 3. PROMINENT BIBASILAR CONSOLIDATION SUGGESTS INFECTIOUS/ASPIRATION PNEUMONITIS OR OTHER INFLAMMATORY PROCESS. 4. MILD CIRCUMFERENTIAL BLADDER WALL THICKENING COULD REPRESENT CHRONIC BLADDER HYPERTROPHY OR CYSTIT IS. CLINICALLY CORRELATE.
== END | disposition home or self-care (01) ==
LOC: RADCTMAIN 08:53
PROVIDERS: ATTEND Family Medicine
DX: R16.2 Hepatomegaly with splenomegaly, not elsewhere classified (principal); K76.89 Other specified diseases of liver; R18.8 Other ascites; N32.89 Other specified disorders of bladder; K92.0 Hematemesis
CPT/HCPCS: 74177; Q9967

== ENCOUNTER 2020-05-30 13:13 | Inpatient (IN) | payer OTHER, MEDICARE ==
[2020-05-30] MEDS ORDERED: MORPHINE SULFATE 4 MG/ML SYRINGE IV STA (13:59)
[2020-05-30] MEDS ORDERED: PANTOPRAZOLE 40 MG/10 ML VIAL IVP STA (13:59)
--- NOTE | 2020-05-30 14:00 | ED ---
Weakness HPI - General Chief complaint: Extremity Problem,Nontraumatic Stated complaint: Bilateral Leg Swelling Time Seen by Provider: 05/30/20 13:43 Source: patient, RN notes reviewed, old records reviewed Mode of arrival: wheelchair Limitations: physical limitation - History of Present Illness Initial comments: This is a 41-year-old male DF for evaluation. Patient Dese for evaluation of abdominal pain abdominal ascites lower extremity edema altered mental status states his does not feel right. All symptoms seem to be related to alcohol liver failure. Patient states symptoms are progressive since prior hospital admission for same he states he has not drank and prior hospital admission. Denying any other drug abuse or alcohol use MD Complaint: generalized weakness, lack of energy -: week(s) Location: generalized Severity: moderate Severity scale (1-10): 7 Consistency: constant Improves with: none, evening Context: recent illness, history of similar Associated Symptoms: confusion, loss of appetite, nausea/vomiting - Related Data Home Medications Medication Instructions Recorded Confirmed Albuterol Sulfate [Ventolin HFA] 2 puff INHALATION RT-Q4H PRN 04/14/20 04/14/20 Amoxic-Pot Clav 875-125Mg 1 tab PO BID 04/14/20 04/14/20 [Augmentin 875-125] Omeprazole [PriLOSEC] 20 mg PO DAILY 04/14/20 04/14/20 oxyCODONE-APAP 10-325MG [Percocet 1 tab PO TID PRN 04/14/20 04/14/20 10-325 mg] Allergies Allergy/AdvReac Type Severity Reaction Status Date / Time No Known Allergies Allergy Verified 05/30/20 13:40 Review of Systems ROS Statement: Those systems with pertinent positive or pertinent negative responses have been documented in the HPI. ROS Other: All systems not noted in ROS Statement are negative. Past Medical History Past Medical History: Liver Disease Additional Past Medical History / Comment(s): chronic pain, antisocial behavior, right eye problems (possibly CA), closed head injury x5 C5-6 [place], [place] 2015 per patient History of Any Multi-Drug Resistant Organisms: MRSA Date of last positivie culture/infection: 2012 MDRO Source:: wound Past Surgical History: Orthopedic Surgery Additional Past Surgical History / Comment(s): hand Past Anesthesia/Blood Transfusion Reactions: No Reported Reaction Past Psychological History: Anxiety, Bipolar Smoking Status: Former smoker Past Alcohol Use History: Daily Past Drug Use History: Marijuana - Past Family History Mother Family Medical History: COPD Father History Unknown: Yes General Exam - General Exam Comments Initial Comments: Significant ascites Limitations: physical limitation General appearance: alert, in no apparent distress Head exam: Present: atraumatic, normocephalic, normal inspection Eye exam: Present: normal appearance, PERRL, EOMI. Absent: scleral icterus, conjunctival injection, periorbital swelling ENT exam: Present: normal exam, mucous membranes moist Neck exam: Present: normal inspection. Absent: tenderness, meningismus, lymphadenopathy Respiratory exam: Present: normal lung sounds bilaterally. Absent: respiratory distress, wheezes, rales, rhonchi, stridor Cardiovascular Exam: Present: regular rate, normal rhythm, normal heart sounds. Absent: systolic murmur, diastolic murmur, rubs, gallop, clicks GI/Abdominal exam: Present: soft, normal bowel sounds. Absent: distended, tenderness, guarding, rebound, rigid Extremities exam: Present: normal inspection, full ROM, normal capillary refill. Absent: tenderness, pedal edema, joint swelling, calf tenderness Back exam: Present: normal inspection Neurological exam: Present: alert, oriented X3, CN II-XII intact Psychiatric exam: Present: normal affect, normal mood Skin exam: Present: warm, dry, intact, normal color. Absent: rash Course Vital Signs 05/30/20 13:36 Temperature 98.2 F Pulse Rate 112 H Respiratory 20 Rate Blood Pressure 124/73 O2 Sat by Pulse 95 Oximetry - Reevaluation(s) Reevaluation #1: 05/30/20 15:25 Medical record is reviewed - Consultations Consultation #1: Spoke with Dr. Ferrara agrees to admit Medical Decision Making - Medical Decision Making 9 male the ER with known cirrhosis coming with significant ascites today. Patient [place] for therapeutic paracentesis - Lab Data Result diagrams: 05/30/20 14:04 05/30/20 14:04 Lab Results 05/30/20 05/30/20 05/30/20 Range/Units 14:04 14:04 14:04 WBC 8.6 (3.8-10.6) k/uL RBC 3.23 L (4.30-5.90) m/uL Hgb 12.1 L (13.0-17.5) gm/dL Hct 35.6 L (39.0-53.0) % MCV 110.0 H (80.0-100.0) fL MCH 37.3 H (25.0-35.0) pg MCHC 33.9 (31.0-37.0) g/dL RDW 12.7 (11.5-15.5) % Plt Count 109 L (150-450) k/uL Neutrophils % 80 % Lymphocytes % 10 % Monocytes % 7 % Eosinophils % 1 % Basophils % 0 % Neutrophils # 6.9 (1.3-7.7) k/uL Lymphocytes # 0.9 L (1.0-4.8) k/uL Monocytes # 0.6 (0-1.0) k/uL Eosinophils # 0.1 (0-0.7) k/uL Basophils # 0.0 (0-0.2) k/uL Differential Comment P Macrocytosis Marked A Sodium 130 L (137-145) mmol/L Potassium 3.9 (3.5-5.1) mmol/L Chloride 99 (98-107) mmol/L Carbon Dioxide 25 (22-30) mmol/L Anion Gap 6 mmol/L BUN 12 (9-20) mg/dL Creatinine 0.50 L (0.66-1.25) mg/dL Est GFR (CKD-EPI)AfAm >90 (>60 ml/min/1.73 sqM) Est GFR (CKD-EPI)NonAf >90 (>60 ml/min/1.73 sqM) Glucose 115 H (74-99) mg/dL Plasma Lactic Acid Gasper 1.3 (0.7-2.0) mmol/L Calcium 8.5 (8.4-10.2) mg/dL Phosphorus 3.3 (2.5-4.5) mg/dL Total Bilirubin 7.1 H (0.2-1.3) mg/dL AST 97 H (17-59) U/L ALT 41 (4-49) U/L Alkaline Phosphatase 100 (38-126) U/L Ammonia 18 (<30) umol/L Creatine Kinase 47 L (55-170) U/L Total Protein 7.1 (6.3-8.2) g/dL Albumin 2.7 L (3.5-5.0) g/dL Amylase 37 (30-110) U/L Lipase 87 (23-300) U/L - Radiology Data Radiology results: report reviewed (X-ray abdominal series and chest is concern for pneumonia), image reviewed Disposition Clinical Impression: Elevated LFTs, Liver cirrhosis, Jaundice, Acute liver failure, Ascites, Community acquired bacterial pneumonia Disposition: ADMITTED IP TO THIS HOSP Condition: Fair Is patient prescribed a controlled substance at d/c from ED?: No Referrals: Hilaria Rhodes DO [Primary Care Provider] - 1-2 days
[2020-05-30 14:26] LABS: Basophils % (A) 0 %; Eosinophils # (A) 0.1 k/uL (0-0.7); Eosinophils % (A) 1 %; HCT 35.6 % (39.0-53.0); HGB 12.1 gm/dL (13.0-17.5); Lymphocytes # (A) 0.9 k/uL (1.0-4.8); Lymphocytes % (A) 10 %; MCH 37.3 pg (25.0-35.0); MCHC 33.9 g/dL (31.0-37.0); Macrocytosis Marked; Mean Platelet Volume 8.6; Monocytes # (A) 0.6 k/uL (0-1.0); Monocytes % (A) 7 %; Neutrophils # (A) 6.9 k/uL (1.3-7.7); Neutrophils % (A) 80 %; Platelet Count 109 k/uL (150-450); RBC 3.23 m/uL (4.30-5.90); RDW 12.7 % (11.5-15.5); WBC 8.6 k/uL (3.8-10.6)
[2020-05-30 14:36] LABS: ALT 41 U/L (4-49); AST 97 U/L (17-59); African American GFR (CKD) >90 (>60 ml/min/1.73 sqM); Albumin 2.7 g/dL (3.5-5.0); Alkaline Phosphatase 100 U/L (38-126); Amylase 37 U/L (30-110); Anion Gap 6 mmol/L; Blood Urea Nitrogen 12 mg/dL (9-20); Calcium 8.5 mg/dL (8.4-10.2); Carbon Dioxide 25 mmol/L (22-30); Chloride 99 mmol/L (98-107); Creatine Kinase 47 U/L (55-170); Glucose 115 mg/dL (74-99); Non-African American GFR(CKD) >90 (>60 ml/min/1.73 sqM); Phosphorus 3.3 mg/dL (2.5-4.5); Potassium 3.9 mmol/L (3.5-5.1); Sodium 130 mmol/L (137-145); Total Bilirubin 7.1 mg/dL (0.2-1.3); Total Protein 7.1 g/dL (6.3-8.2)
[2020-05-30 14:37] LABS: Lactic Acid, Venous 1.3 mmol/L (0.7-2.0)
--- NOTE | 2020-05-30 14:44 | XR ---
EXAMINATION TYPE: XR abdomen acute w cxr DATE OF EXAM: 05/30/2020 COMPARISON: NONE HISTORY: Pain TECHNIQUE: Single view of the chest and 2 views of the abdomen are submitted. FINDINGS: Single view of the chest reveals increased basilar markings which may be on the basis of atelectasis versus developing infiltrate. Correlate clinically. There is no evidence for pneumoperitoneum. There is mild distention of small bowel with a few small scattered air-fluid levels seen. No sizeable air fluid levels.No mass effects are seen. No unusual calcifications. IMPRESSION: 1. Correlate for basilar infiltrates and developing pneumonia. 2. Nonspecific nonobstructive bowel gas pattern.
[2020-05-30] MEDS ORDERED: PNEUMONIA PROTOCOL UTILIZED 1 EACH MISC PO PRN (15:26)
[2020-05-30] MEDS ORDERED: AZITHROMYCIN 500 MG in SODIUM CHLORIDE 0.9% 250 ML IVPB STA (15:26)
[2020-05-30 16:12] LABS: C Reactive Protein 71.4 mg/L (<10.0); Magnesium 1.8 mg/dL (1.6-2.3)
[2020-05-30 16:20] LABS: INR 1.8 (<1.2)
--- NOTE | 2020-05-30 16:59 | US ---
EXAMINATION TYPE: US abdomen limited DATE OF EXAM: 05/30/2020 COMPARISON: NONE CLINICAL HISTORY: ascites. Mild to moderate ascites. IMPRESSION: Limited exam. Moderate ascites.
[2020-05-30] MEDS: oxyCODONE-APAP 10-325MG 1 EACH TAB PO PRN (22:09)
[2020-05-31 02:15] LABS: Ferritin 1213.3 ng/mL (22.0-322.0)
[2020-05-31] MEDS: PANTOPRAZOLE 40 MG/10 ML VIAL IVP SCH (08:00)
[2020-05-31] MEDS: oxyCODONE-APAP 10-325MG 1 EACH TAB PO PRN ×3 (08:00→22:01)
[2020-05-31] MEDS ORDERED: ENOXAPARIN 40 MG/0.4 ML SYRINGE SQ SCH (09:00)
[2020-05-31 09:40] LABS: Basophils % (A) 0 %; Eosinophils # (A) 0.2 k/uL (0-0.7); Eosinophils % (A) 2 %; HCT 34.2 % (39.0-53.0); HGB 11.1 gm/dL (13.0-17.5); Lymphocytes # (A) 0.9 k/uL (1.0-4.8); Lymphocytes % (A) 14 %; MCH 35.5 pg (25.0-35.0); MCHC 32.5 g/dL (31.0-37.0); MCV 109.1 fL (80.0-100.0); Macrocytosis Moderate; Mean Platelet Volume 8.7; Monocytes # (A) 0.6 k/uL (0-1.0); Monocytes % (A) 9 %; Neutrophils # (A) 4.4 k/uL (1.3-7.7); Neutrophils % (A) 71 %; Platelet Count 114 k/uL (150-450); RBC 3.13 m/uL (4.30-5.90); RDW 12.5 % (11.5-15.5); WBC 6.2 k/uL (3.8-10.6)
[2020-05-31 09:49] LABS: INR 1.7 (<1.2); Prothrombin Time 16.4 sec (9.0-12.0)
[2020-05-31 09:54] LABS: ALT 39 U/L (4-49); AST 94 U/L (17-59); African American GFR (CKD) >90 (>60 ml/min/1.73 sqM); Albumin 2.4 g/dL (3.5-5.0); Alkaline Phosphatase 88 U/L (38-126); Anion Gap 5 mmol/L; Blood Urea Nitrogen 9 mg/dL (9-20); Calcium 8.1 mg/dL (8.4-10.2); Carbon Dioxide 26 mmol/L (22-30); Chloride 101 mmol/L (98-107); Glucose 118 mg/dL (74-99); Non-African American GFR(CKD) >90 (>60 ml/min/1.73 sqM); Potassium 3.7 mmol/L (3.5-5.1); Sodium 132 mmol/L (137-145); Total Bilirubin 5.6 mg/dL (0.2-1.3); Total Protein 6.5 g/dL (6.3-8.2)
[2020-05-31] MEDS: FUROSEMIDE 40 MG TAB PO SCH (10:24)
[2020-05-31] MEDS: SPIRONOLACTONE 25 MG TAB PO SCH (10:24)
--- NOTE | 2020-05-31 14:32 | US ---
EXAMINATION TYPE: US paracentesis abd w/image DATE OF EXAM: 05/31/2020 COMPARISON: NONE HISTORY: Ascites. PROCEDURE: Maximal barrier technique was utilized. The skin overlying a suitable pocket of fluid was localized with ultrasound and the overlying skin was prepped and draped. Ultrasound was utilized with sterile technique. Lidocaine was used for local anesthesia and a skin elkin made with a scalpel. Catheter was advanced under direct ultrasound guidance into a suitable pocket of fluid and approximately 7 liters of dark sanguinous fluid were removed. Catheter was withdrawn and hemostasis achieved. There is no immediate complication; the patient is discharged in stable condition. IMPRESSION: STATUS POST ULTRASOUND GUIDED PARACENTESIS FOR PALLIATION OF ASCITES. THIS PROCEDURE WA S PERFORMED BY THE UNDERSIGNED.
[2020-05-31] MEDS: ALBUMIN HUMAN 25% 50 ML in EMPTY BAG 1 BAG IVPB SCH ×4 (15:05→17:50)
[2020-05-31 16:19] LABS: Appearance,BF Cloudy; Color,BF Orange; Nucleated Cells, Body Fluid 1333 /uL
[2020-05-31 16:20] LABS: RBC, Body Fluid 7067 /uL
--- NOTE | 2020-05-31 16:32 | P.HPIM ---
History of Present Illness H&P Date: 05/31/20 Chief Complaint: abdominal distension, AMS Jitendra Shook is a 49 yo M with PMH of cirrhosis of the liver recently diagnosed about 6 weeks ago, history of alcohol abuse, chronic pain who presented to the ED complaining of worsening abdominal pain, confusion, malaise and lethargy. During his last admission in March he left against medical advice in the middle of his workup, he states he never took any lasix or spironolactone and never followed up with his PCP but did stop drinking. He is frustrated that is abdomen has become more distended and painful over the past few weeks despite his abstinence from alcohol. On presentation he was tachycardic, WBC 8.6, INR 1.8, bilirubin 7.1, ferritin 1200. XR abdomen with bibasilar infiltrates and abd US with large ascites. Review of Systems All systems: negative Constitutional: Reports malaise, Reports weakness, Reports weight gain, Denies chills, Denies fever Eyes: denies blurred vision, denies pain Ears, nose, mouth and throat: Denies headache, Denies sore throat Cardiovascular: Denies chest pain, Denies shortness of breath Respiratory: Denies cough Gastrointestinal: Reports as per HPI, Reports abdominal pain, Reports bloating, Reports heartburn, Reports jaundice, Reports loss of appetite, Reports nausea, Denies diarrhea, Denies vomiting Musculoskeletal: Denies myalgias Integumentary: Denies pruritus, Denies rash Neurological: Denies numbness, Denies weakness Psychiatric: Denies anxiety, Denies depression Endocrine: Denies fatigue, Denies weight change Past Medical History Past Medical History: Heart Failure, Eye Disorder, GERD/Reflux, GI Bleed, Liver Disease, Memory Impairment, Myocardial Infarction ([place]), Pneumonia, Renal Disease Additional Past Medical History / Comment(s): ETOH abuse/Liver cirrhosis/ascities/hyperbilirubinemia, recent dog bite/cellulitis abdominal wall, pt states liver disease caused CHF and some renal insufficiency, bilateral leg edema, coagulopathy, macrocytic anemia, CHI x5, nephrolithiasis, upper GI bleed, pt states is 2014 he had a [place] but signed out AMA prior to any workup ([facility]), chronic pain syndrome/cervical pain with stenosis C5-C6/L shoulder/clavicular arthritis/L hip and L knee pain/torn meniscus, past R eye problem with enlarged muscle Last Myocardial Infarction Date:: 2014 per pt History of Any Multi-Drug Resistant Organisms: MRSA Date of last positivie culture/infection: 2012 MDRO Source:: wound Past Surgical History: Orthopedic Surgery Additional Past Surgical History / Comment(s): R hand pins/since removed, wisdom teeth extractions. Past Anesthesia/Blood Transfusion Reactions: Motion Sickness Additional Past Anesthesia/Blood Transfusion Reaction / Comment(s): Marco Antonio terphobic. Smoking Status: Former smoker - Past Family History Mother Family Medical History: COPD Additional Family Medical History / Comment(s): Mother in a house fire at the age of 61 yrs. Father History Unknown: Yes Additional Family Medical History / Comment(s): Father in a MVA at the age of 35 yrs. Medications and Allergies Home Medications Medication Instructions Recorded Confirmed Type Albuterol Sulfate [Ventolin HFA] 2 puff INHALATION RT-Q4H PRN 04/14/20 05/30/20 History Omeprazole [PriLOSEC] 20 mg PO DAILY 04/14/20 05/30/20 History oxyCODONE-APAP 10-325MG [Percocet 1 tab PO TID 04/14/20 05/30/20 History 10-325 mg] Allergies Allergy/AdvReac Type Severity Reaction Status Date / Time No Known Allergies Allergy Verified 05/30/20 15:32 Physical Exam Vitals: Vital Signs Temp Pulse Pulse Resp BP BP Pulse Ox 05/31/20 15:00 98.9 F 105 H 20 127/78 100 05/31/20 14:00 103 H 18 128/70 99 05/31/20 13:40 102 H 18 133/73 99 05/31/20 13:20 105 H 18 132/75 100 05/31/20 13:05 102 H 18 127/72 100 05/31/20 12:45 103 H 18 135/61 100 05/31/20 12:30 101 H 18 133/73 100 05/31/20 07:00 98.5 F 103 H 18 141/67 98 05/31/20 03:41 84 19 141/78 96 05/31/20 01:25 97.8 F 68 18 139/81 97 05/31/20 00:31 104 H 18 144/90 97 05/30/20 20:36 98.4 F 05/30/20 19:28 107 H 17 141/94 99 05/30/20 18:05 98 16 151/90 99 05/30/20 16:01 103 H 16 145/89 99 Intake and Output 05/31/20 05/31/20 05/31/20 06:59 14:59 22:59 Other: # Voids 0 Weight 113.398 kg General: well nourished, well developed, NAD. Vitals reviewed Eyes: PERRL, EOMI, scleral icterus HENT: normocephalic, mucus membranes moist Neck: supple, no JVD Lungs: normal respiratory effort, no wheezes or rales CV: Regular rate and rhythm, no murmur. Peripheral pulses 2+ Abdomen: soft, distended. Generalized tenderness Lymph: no cervical or axillary LAD Skin: warm and dry. Neuro: A&Ox3, normal mood and affect Results CBC & Chem 7: 05/31/20 08:57 05/31/20 08:57 Labs: Abnormal Lab Results - Last 24 Hours (Table) 05/30/20 05/30/20 05/30/20 Range/Units 14:02 14:04 15:46 RBC (4.30-5.90) m/uL Hgb (13.0-17.5) gm/dL Hct (39.0-53.0) % MCV (80.0-100.0) fL MCH (25.0-35.0) pg Plt Count (150-450) k/uL Lymphocytes # (1.0-4.8) k/uL PT 18.0 H (9.0-12.0) sec INR 1.8 H (<1.2) Sodium (137-145) mmol/L Creatinine (0.66-1.25) mg/dL Glucose (74-99) mg/dL Calcium (8.4-10.2) mg/dL Ferritin 1213.3 H (22.0-322.0) ng/mL Total Bilirubin (0.2-1.3) mg/dL AST (17-59) U/L Lactate Dehydrogenase 679 H (313-618) U/L C-Reactive Protein 71.4 H (<10.0) mg/L Albumin (3.5-5.0) g/dL Procalcitonin 1.06 H (0.02-0.09) ng/mL 05/31/20 05/31/20 05/31/20 Range/Units 08:57 08:57 08:57 RBC 3.13 L (4.30-5.90) m/uL Hgb 11.1 L (13.0-17.5) gm/dL Hct 34.2 L (39.0-53.0) % MCV 109.1 H (80.0-100.0) fL MCH 35.5 H (25.0-35.0) pg Plt Count 114 L (150-450) k/uL Lymphocytes # 0.9 L (1.0-4.8) k/uL PT 16.4 H (9.0-12.0) sec INR 1.7 H (<1.2) Sodium 132 L (137-145) mmol/L Creatinine 0.53 L (0.66-1.25) mg/dL Glucose 118 H (74-99) mg/dL Calcium 8.1 L (8.4-10.2) mg/dL Ferritin (22.0-322.0) ng/mL Total Bilirubin 5.6 H (0.2-1.3) mg/dL AST 94 H (17-59) U/L Lactate Dehydrogenase (313-618) U/L C-Reactive Protein (<10.0) mg/L Albumin 2.4 L (3.5-5.0) g/dL Procalcitonin (0.02-0.09) ng/mL Thrombosis Risk Factor Assmnt - Choose All That Apply Any of the Below Risk Factors Present?: Yes Each Factor Represents 1 point: Age 41-60 years, Obesity (BMI >25), Swollen legs (current) Other Risk Factors: No Other congenital or acquired thrombophilia - If yes, enter type in comment: No Thrombosis Risk Factor Assessment Total Risk Factor Score: 3 Thrombosis Risk Factor Assessment Level: Moderate Risk Assessment and Plan (1) Alcoholic cirrhosis of liver with ascites Current Visit: Yes Status: Acute Code(s): K70.31 - ALCOHOLIC CIRRHOSIS OF LIVER WITH ASCITES SNOMED Code(s): 677968988 (2) Acute liver failure Current Visit: Yes Status: Acute Code(s): K72.00 - ACUTE AND SUBACUTE HEPATIC FAILURE WITHOUT COMA SNOMED Code(s): 563788707 (3) Ascites Current Visit: Yes Status: Acute Code(s): R18.8 - OTHER ASCITES SNOMED Code(s): 598360476 (4) Community acquired bacterial pneumonia Current Visit: Yes Status: Acute Code(s): J15.9 - UNSPECIFIED BACTERIAL PNEUMONIA SNOMED Code(s): 299340545 (5) Elevated LFTs Current Visit: Yes Status: Acute Code(s): R79.89 - OTHER SPECIFIED ABNORMAL FINDINGS OF BLOOD CHEMISTRY SNOMED Code(s): 109952831 (6) Supratherapeutic INR Current Visit: Yes Status: Acute Code(s): R79.1 - ABNORMAL COAGULATION PROFILE SNOMED Code(s): 230034923 Plan: 1. Acute liver failure. Secondary to alcohol cirrhosis. GI consult. IV protonix. Start rocephin for SBP prophylaxis 2. Abdominal distension, ascites due to alcoholic cirrhosis. Therapeutic paracentesis scheduled. Start lasix and aldactone 3. Elevated INR 4. Elevated ferritin 5. History of alcohol abuse. 6. Chronic back pain. continue home percocet
[2020-05-31 16:37] LABS: Mononuclear WBC,Body Fluid 30 %; Polynuclear WBC,Body Fluid 70 %; Total Cells Counted,Body Fluid 100
[2020-05-31] MEDS: AZITHROMYCIN 500 MG TAB PO SCH (18:05)
[2020-05-31 23:45] LABS: Total Protein, Body Fluid 1550 mg/dL
[2020-06-01 01:09] LABS: Albumin, Fluid Source Paracentesis Fluid; Amylase, Fluid Source Paracentesis Fluid; Glucose, Body Fluid 119 mg/dL; LDH, Body Fluid Source Paracentesis Fluid
[2020-06-01 01:10] LABS: Glucose, BF Source Paracentesis Fluid
[2020-06-01] MEDS: oxyCODONE-APAP 10-325MG 1 EACH TAB PO PRN ×3 (06:14→22:20)
[2020-06-01 07:31] LABS: INR 1.7 (<1.2); Prothrombin Time 16.4 sec (9.0-12.0)
[2020-06-01 07:52] LABS: ALT 44 U/L (4-49); AST 103 U/L (17-59); African American GFR (CKD) >90 (>60 ml/min/1.73 sqM); Albumin 2.5 g/dL (3.5-5.0); Alkaline Phosphatase 95 U/L (38-126); Anion Gap 4 mmol/L; Blood Urea Nitrogen 8 mg/dL (9-20); Carbon Dioxide 27 mmol/L (22-30); Chloride 104 mmol/L (98-107); Glucose 102 mg/dL (74-99); Non-African American GFR(CKD) >90 (>60 ml/min/1.73 sqM); Potassium 3.7 mmol/L (3.5-5.1); Sodium 135 mmol/L (137-145); Total Bilirubin 4.3 mg/dL (0.2-1.3); Total Protein 6.1 g/dL (6.3-8.2)
[2020-06-01 08:02] LABS: Basophils % (A) 0 %; Eosinophils # (A) 0.3 k/uL (0-0.7); Eosinophils % (A) 4 %; HCT 33.8 % (39.0-53.0); HGB 11.4 gm/dL (13.0-17.5); Lymphocytes # (A) 1.1 k/uL (1.0-4.8); Lymphocytes % (A) 18 %; MCH 37.4 pg (25.0-35.0); MCHC 33.6 g/dL (31.0-37.0); MCV 111.1 fL (80.0-100.0); Macrocytosis Marked; Mean Platelet Volume 8.7; Monocytes # (A) 0.3 k/uL (0-1.0); Monocytes % (A) 5 %; Neutrophils # (A) 4.4 k/uL (1.3-7.7); Neutrophils % (A) 72 %; Platelet Count 113 k/uL (150-450); RBC 3.04 m/uL (4.30-5.90); RDW 12.7 % (11.5-15.5); WBC 6.1 k/uL (3.8-10.6)
[2020-06-01 09:00] LABS: Anisocytosis (M) Present; Poikilocytosis (M) Present
[2020-06-01] MEDS: FUROSEMIDE 40 MG TAB PO SCH (09:02)
[2020-06-01] MEDS: SPIRONOLACTONE 25 MG TAB PO SCH (09:02)
[2020-06-01] MEDS: PANTOPRAZOLE 40 MG/10 ML VIAL IVP SCH (09:02)
--- NOTE | 2020-06-01 09:58 | P.CONS ---
History of Present Illness - Reason for Consult Consult date: 05/31/20 Decompensated liver cirrhosis Requesting physician: Cesar Ferrara - Chief Complaint Abdominal distension, lethargy - History of Present Illness 49-year-old male with a known history of decompensated alcoholic cirrhosis with ascites who was recently seen in the hospital for abnormal laboratories and elevated LFTs at which time he was told of the at which time he was treated for decompensated liver disease thought to be related to a longstanding history of alcohol abuse. At that time the patient had left AGAINST MEDICAL ADVICE and had not been taking any diuretics since that time. He presented back with increasing abdominal bloating and distention. In addition the patient has been having some confusion, malaise and lethargy. He had previously been treated with Lasix and Aldactone but had not received the medications due to his leaving the hospital. He has stopped drinking. On current presentation he is undergone paracentesis with 7 L of ascitic fluid removed. The patient had laboratory evaluation on presentation significant for WBC 6.2, hemoglobin 11.1, platelet count 114,000, amylase 37, lipase 87, INR 1.7, bilirubin 5.6, alkaline phospha tase 88, AST 94 and ALT 39. Patient was given albumin after the procedure. Review of Systems Constitutional: Denies any change in weight, but he did report fatigue and lethargy Eyes: Denies any change in vision, pain denies Nose: Denies any congestion, rhinorrhea Ears: Denies any change in hearing, new onset tinnitus Lungs: Denies any wheezing, shortness of breath, cough, or hemoptysis Cardiac: Denies any pain in chest, shortness of breath, lower extremity swelling Abdomen: As per history of present illness Skin: Denies any new rashes or pruritus Genitourinary: Denies any dysuria or hematuria Neuro: Denies any change in mental status, new focal deficits Past Medical History Past Medical History: Heart Failure, Eye Disorder, GERD/Reflux, GI Bleed, Liver Disease, Memory Impairment, Myocardial Infarction ([place]), Pneumonia, Renal Disease Additional Past Medical History / Comment(s): ETOH abuse/Liver cirrhosis/ascities/hyperbilirubinemia, recent dog bite/cellulitis abdominal wall, pt states liver disease caused CHF and some renal insufficiency, bilateral leg edema, coagulopathy, macrocytic anemia, CHI x5, nephrolithiasis, upper GI bleed, pt states is 2014 he had a [place] but signed out AMA prior to any workup ([facility]), chronic pain syndrome/cervical pain with stenosis C5-C6/L shoulder/clavicular arthritis/L hip and L knee pain/torn meniscus, past R eye problem with enlarged muscle Last Myocardial Infarction Date:: 2014 per pt History of Any Multi-Drug Resistant Organisms: MRSA Year Discovered:: 2012 MDRO Source:: wound Past Surgical History: Orthopedic Surgery Additional Past Surgical History / Comment(s): R hand pins/since removed, wisdom teeth extractions. Past Anesthesia/Blood Transfusion Reactions: Motion Sickness Additional Past Anesthesia/Blood Transfusion Reaction / Comm: Clausterphobic. Smoking Status: Former smoker - Past Family History Mother Family Medical History: COPD Additional Family Medical History / Comment(s): Mother in a house fire at the age of 61 yrs. Father History Unknown: Yes Additional Family Medical History / Comment(s): Father in a MVA at the age of 35 yrs. Medications and Allergies Home Medications Medication Instructions Recorded Confirmed Type Albuterol Sulfate [Ventolin HFA] 2 puff INHALATION RT-Q4H PRN 04/14/20 05/30/20 History Omeprazole [PriLOSEC] 20 mg PO DAILY 04/14/20 05/30/20 History oxyCODONE-APAP 10-325MG [Percocet 1 tab PO TID 04/14/20 05/30/20 History 10-325 mg] Allergies Allergy/AdvReac Type Severity Reaction Status Date / Time No Known Allergies Allergy Verified 05/30/20 15:32 Physical Exam Vitals: Vital Signs Temp Pulse Pulse Resp BP BP Pulse Ox 05/31/20 14:00 103 H 18 128/70 99 05/31/20 13:40 102 H 18 133/73 99 05/31/20 13:20 105 H 18 132/75 100 05/31/20 13:05 102 H 18 127/72 100 05/31/20 12:45 103 H 18 135/61 100 05/31/20 12:30 101 H 18 133/73 100 05/31/20 07:00 98.5 F 103 H 18 141/67 98 05/31/20 03:41 84 19 141/78 96 05/31/20 01:25 97.8 F 68 18 139/81 97 05/31/20 00:31 104 H 18 144/90 97 05/30/20 20:36 98.4 F 05/30/20 19:28 107 H 17 141/94 99 05/30/20 18:05 98 16 151/90 99 05/30/20 16:01 103 H 16 145/89 99 Intake and Output 05/31/20 05/31/20 05/31/20 06:59 14:59 22:59 Other: Weight 113.398 kg Constitutional: Lying in bed in no apparent distress Head: normocephalic/atraumatic Eyes: Icterus, no injection Mouth: Moist mucous membranes Nose: No discharge noted Neck: Trachea midline, no JVD Cardiac: S1S2 appreciated. Lungs: Normal air entry in all lung plummer, no wheezing appreciated Abdomen: Soft, nontender, nondistended, normal bowel sounds. No guarding or rigidity Skin: No rashes, jaundice Neuro: Awake alert and oriented 3, no asterixis noted, no focal deficits Results CBC & Chem 7: 06/01/20 07:09 06/01/20 07:09 Labs: Abnormal Lab Results - Last 24 Hours (Table) 05/30/20 05/30/20 05/30/20 Range/Units 14:02 14:04 15:46 RBC (4.30-5.90) m/uL Hgb (13.0-17.5) gm/dL Hct (39.0-53.0) % MCV (80.0-100.0) fL MCH (25.0-35.0) pg Plt Count (150-450) k/uL Lymphocytes # (1.0-4.8) k/uL PT 18.0 H (9.0-12.0) sec INR 1.8 H (<1.2) Sodium (137-145) mmol/L Creatinine (0.66-1.25) mg/dL Glucose (74-99) mg/dL Calcium (8.4-10.2) mg/dL Ferritin 1213.3 H (22.0-322.0) ng/mL Total Bilirubin (0.2-1.3) mg/dL AST (17-59) U/L Lactate Dehydrogenase 679 H (313-618) U/L C-Reactive Protein 71.4 H (<10.0) mg/L Albumin (3.5-5.0) g/dL Procalcitonin 1.06 H (0.02-0.09) ng/mL 05/31/20 05/31/20 05/31/20 Range/Units 08:57 08:57 08:57 RBC 3.13 L (4.30-5.90) m/uL Hgb 11.1 L (13.0-17.5) gm/dL Hct 34.2 L (39.0-53.0) % MCV 109.1 H (80.0-100.0) fL MCH 35.5 H (25.0-35.0) pg Plt Count 114 L (150-450) k/uL Lymphocytes # 0.9 L (1.0-4.8) k/uL PT 16.4 H (9.0-12.0) sec INR 1.7 H (<1.2) Sodium 132 L (137-145) mmol/L Creatinine 0.53 L (0.66-1.25) mg/dL Glucose 118 H (74-99) mg/dL Calcium 8.1 L (8.4-10.2) mg/dL Ferritin (22.0-322.0) ng/mL Total Bilirubin 5.6 H (0.2-1.3) mg/dL AST 94 H (17-59) U/L Lactate Dehydrogenase (313-618) U/L C-Reactive Protein (<10.0) mg/L Albumin 2.4 L (3.5-5.0) g/dL Procalcitonin (0.02-0.09) ng/mL US - abdomen: report reviewed (US paracentesis with 7 L of ascitic fluid removed) Assessment and Plan (1) Alcoholic cirrhosis of liver with ascites Narrative/Plan: 49-year-old male with a known history of decompensated alcoholic cirrhosis with ascites who presented for a weakness, fatigue and increasing abdominal distention. Recently seen in the hospital and started on diuretic therapy he had left AGAINST MEDICAL ADVICE and did not receive any medications at that time. He had increasing fluid overload and abdominal distention and presented back for further evaluation. He reports that he has not had alcohol since discharge. After hospitalization he underwent ultrasound paracentesis with 7 L of ascitic fluid removed. Current Visit: Yes Status: Acute Code(s): K70.31 - ALCOHOLIC CIRRHOSIS OF LIVER WITH ASCITES SNOMED Code(s): 230321569 (2) Ascites Current Visit: Yes Status: Acute Code(s): R18.8 - OTHER ASCITES SNOMED Code(s): 667172266 (3) Elevated LFTs Current Visit: Yes Status: Acute Code(s): R79.89 - OTHER SPECIFIED ABNORMAL FINDINGS OF BLOOD CHEMISTRY SNOMED Code(s): 550803334 (4) Jaundice Current Visit: Yes Status: Acute Code(s): R17 - UNSPECIFIED JAUNDICE SNOMED Code(s): 49584997 (5) Liver cirrhosis Current Visit: Yes Status: Acute Code(s): K74.60 - UNSPECIFIED CIRRHOSIS OF LIVER SNOMED Code(s): 53495220 (6) Supratherapeutic INR Current Visit: Yes Status: Acute Code(s): R79.1 - ABNORMAL COAGULATION PROFILE SNOMED Code(s): 545360998 Plan: Supportive care Okay for sodium restricted diet Aldactone 50 mg and Lasix 40 mg daily started Ultrasound paracentesis performed with fluid studies Ammonia level pending, no clinical signs of asterixis however fatigue may be related to encephalopathy and patient may need initiation of lactulose therapy Continue alcohol abstinence Thank you for allowing us to participate in the care of the patient
[2020-06-01 15:10] VITALS: BMI 30.4
[2020-06-01] MEDS: LACTULOSE 20 GM/30 ML CUP PO SCH (16:17)
--- NOTE | 2020-06-01 16:36 | P.PN ---
Subjective Progress Note Date: 06/01/20 Jitendra Shook is a 49 yo M with PMH of cirrhosis of the liver recently diagnosed about 6 weeks ago, history of alcohol abuse, chronic pain who presented to the ED complaining of worsening abdominal pain, confusion, malaise and lethargy. During his last admission in March he left against medical advice in the middle of his workup, he states he never took any lasix or spironolactone and never followed up with his PCP but did stop drinking. He is frustrated that is abdomen has become more distended and painful over the past few weeks despite his abstinence from alcohol. On presentation he was tachycardic, WBC 8.6, INR 1.8, bilirubin 7.1, ferritin 1200. XR abdomen with bibasilar infiltrates and abd US with large ascites. 06/01/2020 yesterday underwent paracentesis, large volume with 7 L drained. To lerated procedure well. Maintained on Lasix and aldactone. Tolerating diet with no nausea or vomiting. Denies abdominal pain. Denies chest pain, palpitations or shortness of breath. Objective - Vital Signs Vital signs: Vital Signs Temp 98.4 F 06/01/20 15:00 Pulse 99 06/01/20 15:03 Resp 20 06/01/20 15:00 BP 125/72 06/01/20 15:00 Pulse Ox 99 06/01/20 15:00 Intake & Output 05/31/20 06/01/20 06/01/20 18:59 06:59 18:59 Intake Total 500 Balance 500 Weight 113.398 kg 113.398 kg Intake: Oral 500 Other: Voiding Method Toilet Urinal # Voids 0 6 - Exam General: well nourished, well developed, NAD. Vitals reviewed Eyes: PERRL, EOMI, scleral icterus HENT: normocephalic, mucus membranes moist Neck: supple, no JVD Lungs: normal respiratory effort, no wheezes or rales CV: Regular rate and rhythm, no murmur. Peripheral pulses 2+ Abdomen: soft, distended. Minimal diffuse tenderness. Lymph: no cervical or axillary LAD Skin: warm and dry. Neuro: A&Ox3, normal mood and affect - Labs CBC & Chem 7: 06/01/20 07:09 06/01/20 07:09 Labs: Abnormal Lab Results - Last 24 Hours (Table) 06/01/20 06/01/20 06/01/20 Range/Units 07:09 07:09 07:09 RBC 3.04 L (4.30-5.90) m/uL Hgb 11.4 L (13.0-17.5) gm/dL Hct 33.8 L (39.0-53.0) % MCV 111.1 H (80.0-100.0) fL MCH 37.4 H (25.0-35.0) pg Plt Count 113 L (150-450) k/uL Macrocytosis Marked A PT 16.4 H (9.0-12.0) sec INR 1.7 H (<1.2) Sodium 135 L (137-145) mmol/L BUN 8 L (9-20) mg/dL Creatinine 0.58 L (0.66-1.25) mg/dL Glucose 102 H (74-99) mg/dL Calcium 8.0 L (8.4-10.2) mg/dL Total Bilirubin 4.3 H (0.2-1.3) mg/dL AST 103 H (17-59) U/L Ammonia (<30) umol/L Total Protein 6.1 L (6.3-8.2) g/dL Albumin 2.5 L (3.5-5.0) g/dL 06/01/20 Range/Units 10:21 RBC (4.30-5.90) m/uL Hgb (13.0-17.5) gm/dL Hct (39.0-53.0) % MCV (80.0-100.0) fL MCH (25.0-35.0) pg Plt Count (150-450) k/uL Macrocytosis PT (9.0-12.0) sec INR (<1.2) Sodium (137-145) mmol/L BUN (9-20) mg/dL Creatinine (0.66-1.25) mg/dL Glucose (74-99) mg/dL Calcium (8.4-10.2) mg/dL Total Bilirubin (0.2-1.3) mg/dL AST (17-59) U/L Ammonia 58 H (<30) umol/L Total Protein (6.3-8.2) g/dL Albumin (3.5-5.0) g/dL Microbiology - Last 24 Hours (Table) 05/31/20 14:00 Gram Stain - Preliminary Ascites Fluid Body Fluid Culture - Preliminary 05/30/20 15:26 Blood Culture - Preliminary Blood No Growth after 24 hours Assessment and Plan Assessment: (1) Alcoholic cirrhosis of liver with ascites Current Visit: Yes Status: Acute Code(s): K70.31 - ALCOHOLIC CIRRHOSIS OF LIVER WITH ASCITES SNOMED Code(s): 253596093 (2) Acute liver failure Current Visit: Yes Status: Acute Code(s): K72.00 - ACUTE AND SUBACUTE HEPATIC FAILURE WITHOUT COMA SNOMED Code(s): 376011880 (3) Ascites Current Visit: Yes Status: Acute Code(s): R18.8 - OTHER ASCITES SNOMED Code(s): 306647034 (4) Community acquired bacterial pneumonia Current Visit: Yes Status: Acute Code(s): J15.9 - UNSPECIFIED BACTERIAL PNEUMONIA SNOMED Code(s): 537188396 (5) Elevated LFTs Current Visit: Yes Status: Acute Code(s): R79.89 - OTHER SPECIFIED ABNORMAL FINDINGS OF BLOOD CHEMISTRY SNOMED Code(s): 719392948 (6) Supratherapeutic INR Current Visit: Yes Status: Acute Code(s): R79.1 - ABNORMAL COAGULATION PROFILE SNOMED Code(s): 027365302 (7) history of alcohol abuse (8) chronic back pain Plan: Continue on current medication regime ,monitoring and symptomatic treatment. Maintain Lasix, Aldactone, lactulose, empiric Rocephin. Continue on restricted sodium diet. Discharge planning in progress in the next 24-48 hours. The impression and plan of care has been dictated as directed. : I performed a history and examination of this patient, discussed the same with the dictator. I agree with the dictator's note ,documented as a scribe. Any additional findings or plans will be noted.
[2020-06-01] MEDS: AZITHROMYCIN 500 MG TAB PO SCH (17:34)
[2020-06-02] MEDS: LACTULOSE 20 GM/30 ML CUP PO SCH (07:29)
[2020-06-02] MEDS: FUROSEMIDE 40 MG TAB PO SCH (07:29)
[2020-06-02] MEDS: SPIRONOLACTONE 25 MG TAB PO SCH (07:30)
[2020-06-02] MEDS: PANTOPRAZOLE 40 MG/10 ML VIAL IVP SCH (07:30)
[2020-06-02] MEDS: oxyCODONE-APAP 10-325MG 1 EACH TAB PO PRN ×2 (07:30→14:35)
[2020-06-02 08:55] LABS: ALT 49 U/L (4-49); AST 107 U/L (17-59); African American GFR (CKD) >90 (>60 ml/min/1.73 sqM); Albumin 2.8 g/dL (3.5-5.0); Alkaline Phosphatase 98 U/L (38-126); Anion Gap 6 mmol/L; Blood Urea Nitrogen 7 mg/dL (9-20); Calcium 8.6 mg/dL (8.4-10.2); Carbon Dioxide 28 mmol/L (22-30); Chloride 102 mmol/L (98-107); Glucose 117 mg/dL (74-99); Non-African American GFR(CKD) >90 (>60 ml/min/1.73 sqM); Potassium 3.6 mmol/L (3.5-5.1); Sodium 136 mmol/L (137-145); Total Bilirubin 4.6 mg/dL (0.2-1.3); Total Protein 6.8 g/dL (6.3-8.2)
[2020-06-02] MEDS ORDERED: SIMETHICONE 80 MG CHEWABLE PO SCH (13:00)
[2020-06-02 15:03] VITALS: BP 150/83; PULSE 107; RESP 18; TEMP 98.6
--- NOTE | 2020-06-02 19:45 | P.PN ---
Subjective Progress Note Date: 06/01/20 Principal diagnosis: Decompensated cirrhosis with ascites Patient seen lying in bed reporting that overall is feeling better today. No nausea or vomiting. Abdomen less distended status post paracentesis. Objective - Vital Signs Vital signs: Vital Signs Temp 98.4 F 06/01/20 14:56 Pulse 99 06/01/20 15:03 Resp 20 06/01/20 14:56 BP 125/72 06/01/20 14:56 Pulse Ox 98 06/01/20 14:56 Intake & Output 05/31/20 06/01/20 06/01/20 18:59 06:59 18:59 Intake Total 500 Balance 500 Weight 113.398 kg 113.398 kg Intake: Oral 500 Other: Voiding Method Toilet Urinal # Voids 0 6 - Exam On physical examination, patient appears comfortable in no apparent distress. HEAD: Normocephalic, atraumatic. EYES: No scleral icterus. No conjunctival injection. MOUTH: No lesions, tongue midline. NECK: Trachea midline, no gross abnormalities. ABDOMEN: Soft, obese, less distended. Bowel sounds are positive. No organomegaly. No guarding or rigidity. EXTREMITIES: No pedal edema. SKIN: No rashes, no jaundice. NEUROLOGIC: Alert and oriented x3, no asterixis noted. No focal deficits. - Labs CBC & Chem 7: 06/01/20 07:09 06/02/20 07:52 Labs: Abnormal Lab Results - Last 24 Hours (Table) 06/01/20 06/01/20 06/01/20 Range/Units 07:09 07:09 07:09 RBC 3.04 L (4.30-5.90) m/uL Hgb 11.4 L (13.0-17.5) gm/dL Hct 33.8 L (39.0-53.0) % MCV 111.1 H (80.0-100.0) fL MCH 37.4 H (25.0-35.0) pg Plt Count 113 L (150-450) k/uL Macrocytosis Marked A PT 16.4 H (9.0-12.0) sec INR 1.7 H (<1.2) Sodium 135 L (137-145) mmol/L BUN 8 L (9-20) mg/dL Creatinine 0.58 L (0.66-1.25) mg/dL Glucose 102 H (74-99) mg/dL Calcium 8.0 L (8.4-10.2) mg/dL Total Bilirubin 4.3 H (0.2-1.3) mg/dL AST 103 H (17-59) U/L Ammonia (<30) umol/L Total Protein 6.1 L (6.3-8.2) g/dL Albumin 2.5 L (3.5-5.0) g/dL 06/01/20 Range/Units 10:21 RBC (4.30-5.90) m/uL Hgb (13.0-17.5) gm/dL Hct (39.0-53.0) % MCV (80.0-100.0) fL MCH (25.0-35.0) pg Plt Count (150-450) k/uL Macrocytosis PT (9.0-12.0) sec INR (<1.2) Sodium (137-145) mmol/L BUN (9-20) mg/dL Creatinine (0.66-1.25) mg/dL Glucose (74-99) mg/dL Calcium (8.4-10.2) mg/dL Total Bilirubin (0.2-1.3) mg/dL AST (17-59) U/L Ammonia 58 H (<30) umol/L Total Protein (6.3-8.2) g/dL Albumin (3.5-5.0) g/dL Microbiology - Last 24 Hours (Table) 05/31/20 14:00 Gram Stain - Preliminary Ascites Fluid Body Fluid Culture - Preliminary 05/30/20 15:26 Blood Culture - Preliminary Blood No Growth after 24 hours Assessment and Plan (1) Alcoholic cirrhosis of liver with ascites Narrative/Plan: 49-year-old male with a known history of decompensated alcoholic cirrhosis with ascites who presented for a weakness, fatigue and increasing abdominal distention. Recently seen in the hospital and started on diuretic therapy he had left AGAINST MEDICAL ADVICE and did not receive any medications at that time. He had increasing fluid overload and abdominal distention and presented back for further evaluation. He reports that he has not had alcohol since discharge. After hospitalization he underwent ultrasound paracentesis with 7 L of ascitic fluid removed. Status: Acute Code(s): K70.31 - ALCOHOLIC CIRRHOSIS OF LIVER WITH ASCITES SNOMED Code(s): 406259917 (2) Ascites Status: Acute Code(s): R18.8 - OTHER ASCITES SNOMED Code(s): 198828908 (3) Elevated LFTs Status: Acute Code(s): R79.89 - OTHER SPECIFIED ABNORMAL FINDINGS OF BLOOD CHEMISTRY SNOMED Code(s): 162461449 (4) Jaundice Status: Acute Code(s): R17 - UNSPECIFIED JAUNDICE SNOMED Code(s): 31642382 (5) Liver cirrhosis Status: Acute Code(s): K74.60 - UNSPECIFIED CIRRHOSIS OF LIVER SNOMED Code(s): 17522182 (6) Supratherapeutic INR Status: Acute Code(s): R79.1 - ABNORMAL COAGULATION PROFILE SNOMED Code(s): 594880071 Plan: Supportive care Okay for sodium restricted diet Aldactone 50 mg and Lasix 40 mg daily Ultrasound paracentesis performed with fluid studies Lactulose daily initiated Continue alcohol abstinence Thank you for allowing us to participate in the care of the patient
[2020-06-03] MEDS ORDERED: PANTOPRAZOLE 40 MG TABLET PO SCH (07:30)
--- NOTE | 2020-06-03 08:04 | CDI ---
Documentation Clarification Form Date: 06/03/20 From: Sharon Gómez Phone: If you have a question about this query, please contact Socorro Nicolas, Hardware Installer at [phone] between 8am and 5pm. Admit Date: 05/30/20 Discharge Date:06/02/20 Patient Name: Jitendra Shook Visit Number: [id number] ATTENTION: The Clinical Documentation Specialists (CDI) and [facility] Coding Staff appreciate your assistance in clarifying documentation. Please respond to the clarification below the line at the bottom and electronically sign. The CDI & [facility] Coding staff will review the response and follow-up if needed. Please note: Queries are made part of the Legal Health Record. If you have any questions, please contact the author of this message via ITS. Dear Dr. Ferrara Altered Mental Status was documented in the ED note and H&P. History/Risk Factors: History of alcohol abuse, cirrhosis, ascites, pneumonia Clinical Indicators: Confusion documented in the H&P, ED note, consult note and your 06/01 progress note. Labs: Sodium 130, Bilirubin 7.1, albumin 2.7, creatine kinase 47, c-reactive protein US Abdomen: mild to moderate ascites Abd/CXR: 1. Correlate for basilar infiltrates and developing pneumonia. 2. Nonspecific nonobstructive bowel gas pattern. Treatment: Paracentesis, IV Albumin, Lactulose, IV Zithromax, IV Rocephin In your professional opinion, please clarify the etiology of the Altered Mental Status, if known. Delirium (specify cause): Dementia (if know, specify Type and if with/without Behavioral Disturbance) Encephalopathy (specify Type and Underlying Medical Illness) Other condition (please specify) Unable to determine Encephalopathy, metabolic due to cirrhosis MTDD
--- NOTE | 2020-06-03 10:04 | P.DS ---
Providers Date of admission: 05/30/20 15:22 Expected date of discharge: 06/03/20 Attending physician: Cesar Ferrara MD Consults: 05/30/20 15:22 Consult Physician Routine Consulting Provider: Guru Ojeda Consult Reason/Comments: cirrhosisi Do you want consulting provider notified?: Yes Primary care physician: Hilaria Rhodes [facility] Course: Final Diagnoses: (1) Alcoholic cirrhosis of liver with ascites Current Visit: Yes Status: Acute Code(s): K70.31 - ALCOHOLIC CIRRHOSIS OF LI CATHY WITH ASCITES SNOMED Code(s): 255124052 (2) Acute liver failure Current Visit: Yes Status: Acute Code(s): K72.00 - ACUTE AND SUBACUTE HEPATIC FAILURE WITHOUT COMA SNOMED Code(s): 825317235 (3) Ascites Current Visit: Yes Status: Acute Code(s): R18.8 - OTHER ASCITES SNOMED Code(s): 119330729 (4) Community acquired bacterial pneumonia Current Visit: Yes Status: Acute Code(s): J15.9 - UNSPECIFIED BACTERIAL PNEUMONIA SNOMED Code(s): 834734605 (5) Elevated LFTs Current Visit: Yes Status: Acute Code(s): R79.89 - OTHER SPECIFIED ABNORMAL FINDINGS OF BLOOD CHEMISTRY SNOMED Code(s): 540450951 (6) Supratherapeutic INR Current Visit: Yes Status: Acute Code(s): R79.1 - ABNORMAL COAGULATION PROFILE SNOMED Code(s): 404054961 (7) history of alcohol abuse (8) chronic back pain (9) he acute metabolic encephalopathy, multifactorial, secondary to all the above, resolved Hospital course:Jitendra Shook is a 49 yo M with PMH of cirrhosis of the liver recently diagnosed about 6 weeks ago, history of alcohol abuse, chronic pain who presented to the ED complaining of worsening abdominal pain, confusion, malaise and lethargy. During his last admission in March he left against medical advice in the middle of his workup, he states he never took any lasix or spironolactone and never followed up with his PCP but did stop drinking. He is frustrated that is abdomen has become more distended and painful over the past few weeks despite his abstinence from alcohol. On presentation he was tachycardic, WBC 8.6, INR 1.8, bilirubin 7.1, ferritin 1200. XR abdomen with bibasilar infiltrates and abd US with large ascites. 06/01/2020 yesterday underwent paracentesis, large volume with 7 L drained. Tolerated procedure well. Maintained on Lasix and aldactone. Tolerating diet with no nausea or vomiting. Denies abdominal pain. Denies chest pain, palpitations or shortness of breath. Evaluated by GI. Complaining gas/spasms . Gas-X and levsin added to med regimen .Significant clinical improvement. Patient is being discharged home today in a stable condition with guarded prognosis. Please refer to consults/EMR for further details. The impression and plan of care has been dictated as directed. : I performed a history and examination of this patient, discussed the same with the dictator. I agree with the dictator's note ,documented as a scribe. Any additional findings or plans will be noted. Patient Condition at Discharge: Stable Plan - Discharge Summary Discharge Rx Participant: No New Discharge Prescriptions: New Spironolactone [Aldactone] 50 mg PO DAILY 30 Days #30 tab Furosemide [Lasix] 40 mg PO DAILY 30 Days #30 tab Lactulose [Cephulac] 30 gm PO DAILY 30 Days #30 ml Simethicone [Gas-X] 125 mg PO TID PRN 14 Days #42 capsule PRN Reason: Bloating Hyoscyamine Sulfate [Levsin] 0.125 mg PO Q4H PRN #30 tablet PRN Reason: Spasms Continue oxyCODONE-APAP 10-325MG [Percocet 10-325 mg] 1 tab PO TID Omeprazole [PriLOSEC] 20 mg PO DAILY Albuterol Sulfate [Ventolin HFA] 2 puff INHALATION RT-Q4H PRN PRN Reason: Shortness Of Breath Discharge Medication List Albuterol Sulfate [Ventolin HFA] 2 puff INHALATION RT-Q4H PRN 04/14/20 [History] Omeprazole [PriLOSEC] 20 mg PO DAILY 04/14/20 [History] oxyCODONE-APAP 10-325MG [Percocet 10-325 mg] 1 tab PO TID 04/14/20 [History] Furosemide [Lasix] 40 mg PO DAILY 30 Days #30 tab 06/02/20 [Rx] Hyoscyamine Sulfate [Levsin] 0.125 mg PO Q4H PRN #30 tablet 07/16/20 [Rx] Lactulose [Cephulac] 30 gm PO DAILY 30 Days #30 ml 06/02/20 [Rx] Simethicone [Gas-X] 125 mg PO TID PRN 14 Days #42 capsule 06/02/20 [Rx] Spironolactone [Aldactone] 50 mg PO DAILY 30 Days #30 tab 06/02/20 [Rx] Follow up Appointment(s)/Referral(s): Cesar Ferrara MD [STAFF PHYSICIAN] - 06/07/20 11:00 am ([facility] location) Brissa Li NPC [Nurse Practitioner] - 06/16/20 8:30 am (please bring license, insurance card and face mask.) Patient Instructions/Handouts: Ascites (DC) Activity/Diet/Wound Care/Special Instructions: Fax final ascites fluid culture results to both Dr. Ojeda & Dr. Cesar Ferrara Discharge Disposition: HOME SELF-CARE
== END 2020-06-02 16:33 | disposition home or self-care (01) | DRG 432 ==
LOC: EC 13:13 → 4SSUR 15:22
PROVIDERS: ADMIT Family Medicine; ATTEND Family Medicine
PROC: 0W9G3ZZ Drainage of Peritoneal Cavity, Percutaneous Approach (ICD-10-PCS; principal; 2020-05-31)
DX: K70.31 Alcoholic cirrhosis of liver with ascites (principal); J15.9 Unspecified bacterial pneumonia; K72.00 Acute and subacute hepatic failure without coma; G93.41 Metabolic encephalopathy; F31.9 Bipolar disorder, unspecified; G89.4 Chronic pain syndrome; I25.2 Old myocardial infarction; D53.9 Nutritional anemia, unspecified; F41.9 Anxiety disorder, unspecified; K21.9 Gastro-esophageal reflux disease without esophagitis; M19.90 Unspecified osteoarthritis, unspecified site; M48.02 Spinal stenosis, cervical region; M54.9 Dorsalgia, unspecified; R79.1 Abnormal coagulation profile; I50.9 Heart failure, unspecified; Z11.59 Encounter for screening for other viral diseases; Z87.442 Personal history of urinary calculi; Z87.891 Personal history of nicotine dependence; Z79.891 Long term (current) use of opiate analgesic; Z79.899 Other long term (current) drug therapy; Z86.14 Personal history of Methicillin resistant Staphylococcus aureus infection; Z87.01 Personal history of pneumonia (recurrent); Z87.820 Personal history of traumatic brain injury; Z82.5 Family history of asthma and other chronic lower respiratory diseases
CPT/HCPCS: 36415; 49083; 74022; 76705; 80053; 82042; 82140; 82150; 82550; 82728; 82945; 83605; 83615; 83690; 83735; 84100; 84145; 84157; 85025; 85610; 86140; 87040; 87070; 87205; 88108; 88305; 89050; 96365; 96366; 96367; 96372; 96375; 96376; 99285